=== PATIENT | male | born 1955 | race Asian ===

== ENCOUNTER 2018-10-29 12:30 | Inpatient (IN) | payer OTHER ==
[~2018-10-29] VITALS: Ht 175.3 cm; Wt 79.8 kg
--- NOTE | 2018-10-29 07:10 | NUR ---
NURSE NOTES: Received report from Lachelle Sandoval RN. Pt was just came to the unit, admission orders are not completed yet. Will contact PCP. Pt is resting in the bed w/o respiratory distress in RA. C/o pain 5/10 in chest area when he cough. Pt mentioned that he hit himself when he fell home d/t dizziness and it couase the pain. Safety measures are applied w/ bed alarm on, bed in lowest position with side rails up x2, and breaks are engaged. Call light and side table are w/in reach. Will follow plans of care. Addendum: 10/29/18 at 2019 by HAZEL SUAREZ RN Wrong time input.
[2018-10-29] MEDS ORDERED: ATORVASTATIN CA20 MG ORAL (12:45)
[2018-10-29] MEDS ORDERED: TAMSULOSIN HCL0.4 MG ORAL (12:45)
[2018-10-29] MEDS ORDERED: LOSARTAN POTASS50 MG ORAL (12:45)
[2018-10-29 12:55] VITALS: BP 98/64
--- NOTE | 2018-10-29 12:55 | NUR ---
ED Nurse Note: pt was brought to ED by friend due to pt experiencing nausea, vomiting, and diarrhea for x3 days. per friend, pt insists on walking when he is home and he falls due to dizziness. pt has bruise on his left upper chest. when asking the pt why there is bruise, per pt he fell on his chest. pain 9/10. pt is aox 4 vss at the moment. will await further orders.
[2018-10-29 13:21] LABS: HEMATOCRIT 45.3 % (42.0-52.0); HEMOGLOBIN 16.4 G/DL (14.2-18.0); MEAN CORPUSCULAR VOLUME 93 FL (80-99); PLATELET COUNT 131 K/UL (150-450); RED BLOOD COUNT 4.86 M/UL (4.70-6.10); WHITE BLOOD COUNT 14.3 K/UL (4.8-10.8)
--- NOTE | 2018-10-29 13:38 | Emergency Room Report ---
History of Present Illness General Chief Complaint: Dizziness Source: Patient (Terrance Corbett) Present Illness HPI 62-year-old male patient presents the ER complaining of vomiting, diarrhea, dizziness for the past 4 days. Patient reports no coffee-ground emesis or blood in vomit or stool. Reports dizziness with standing up. Reports history of dizzy symptoms. Reports fell 4 days ago and hit chest. Complaining of chest contusion. Reports pain is reproducible. Denies hitting head or loss conscious. Denies history of seizures. Denies vision changes, photophobia, phonophobia. Reports history of tinnitus. Denies shortness of breath, abdominal pain. Reports hx of dental implant 10 days that preceded the onset of current symptoms.Reports hx of high blood pressure, denies hx of CHF or stroke. (Terrance Corbett) Allergies: Coded Allergies: No Known Allergies (Unverified , 10/29/18) Patient History Past Medical History: see triage record Reviewed Nursing Documentation: PMH: Agreed; PSxH: Agreed (Terrance Corbett) Nursing Documentation-PMH Past Medical History: No History, Except For Hx Hypertension: Yes (Terrance Corbett) Review of Systems All Other Systems: negative except mentioned in HPI (Terrance Corbett) Physical Exam Vital Signs Date Time Temp Pulse Resp B/P (MAP) Pulse Ox O2 Delivery O2 Flow Rate FiO2 10/29/18 12:39 100.2 113 18 98/64 94 Room Air Sp02 EP Interpretation: reviewed, normal General Appearance: well appearing, no apparent distress, alert, GCS 15, non- toxic Head: normocephalic, atraumatic Eyes: bilateral eye normal inspection, bilateral eye PERRL ENT: hearing grossly normal, normal pharynx, no angioedema, normal voice, uvula midline, moist mucus membranes Neck: full range of motion Respiratory: lungs clear, normal breath sounds, no rhonchi, no respiratory distress, no accessory muscle use, no wheezing, speaking full sentences, other - Left upper chest tender to palpation, ecchymosis noted, no flail chest, no deformity Cardiovascular #1: regular rate, rhythm, no edema Gastrointestinal: non tender, soft, no mass, non-distended, no guarding, no rebound Genitourinary: no CVA tenderness Musculoskeletal: back normal, digits/nails normal, gait/station normal, normal range of motion, non-tender Neurologic: alert, oriented x3, responsive, motor strength/tone normal, sensory intact Psychiatric: mood/affect normal Skin: no rash Lymphatic: no adenopathy (Terrance Corbett) Procedures Critical Care Time Critical Care Time 50 minutes of critical care time excluding all procedures due to patient's hemodynamic instability and electrolyte abnormalities. (Terrance Corbett) Critical Care Time The history of Finn Tan has been reviewed and management options for him have been examined and discussed by Edwige Titus. I have personally examined and interviewed the patient. Please note patient was evaluated and examined by myself as well Patient is found to be febrile tachycardic Reports of frequent falls recently Patient is concerned for acute sepsis aggressive hydration and antibiotics initiated patient requiring further inpatient care (Edwige Titus DO) Medical Decision Making PA Attestation Dr. Titus is my supervising Physician whom patient management has been discussed with. (Terrance Corbett) Diagnostic Impression: Primary Impression: Sepsis Additional Impressions: Dizziness Pneumonia Rib fracture ER Course Pt. presents to the ED c/o vomiting, diarrhea, dizziness times 4 days. Ddx considered but are not limited to gastritis, enteritis, sepsis, dehydration , PA, CVA, viral syndrome, influenza,, pneumonia, orthostatic hypotension. Vital signs show mild elevated temperature, tachycardia, hypotension, will provide patient with IV fluids. ER COURSE: Ordered labs and CT head. Provided patient with Tylenol and Zofran. No abdominal tenderness to palpation, does not require CT abdomen at this time. Discuss patient care with Dr. Titus, patient seen and evaluated by him. CXR shows right lower lobe mass, possible PNA, will provide patient with abx. CT chest shows rib fractures. Provided with pain medication. Patient to be admitted. - Please note that this Emergency Department Report was dictated using [employer] interventionist technology software, occasionally this can lead to erroneous entry secondary to interpretation by the dictation equipment. (Terrance Corbett) EKG Diagnostic Results Rate: tachycardiac Rhythm: NSR ST Segments: no acute changes ASA given to the pt in ED: No PA Scribe Text Leonel Corbett PA-C (Terrance Corbett) Rhythm Strip Diag. Results EP Interpretation: yes Rate: 111 Rhythm: NSR, no PVC's, no ectopy MARSHA Scribe Text Leonel Corbett PA-C (Terrance Corbett) CT/MRI/US Diagnostic Results CT/MRI/US Diagnostic Results : Imaging Test Ordered: CT head Impression Negative for acute intracranial bleed or mass effect Minimal periventricular deep white matter chronic ischemic change Questionable old right cerebellar hemispheric deep white matter infarct (Terrance Corbett) Last Vital Signs Date Time Temp Pulse Resp B/P (MAP) Pulse Ox O2 Delivery O2 Flow Rate FiO2 10/29/18 12:55 101.8 113 18 98/64 94 Room Air (Terrance Corbett) Disposition: ADMITTED INPATIENT Condition: Serious Terrance Crobett Oct 29, 2018 13:38 Edwige Titus DO Oct 29, 2018 14:16
[2018-10-29 13:49] LABS: ALANINE AMINOTRANSFERASE 99 U/L (12-78); ALBUMIN 3.1 G/DL (3.4-5.0); ALBUMIN/GLOBULIN RATIO 0.6 (1.0-2.7); ALKALINE PHOSPHATASE 66 U/L (46-116); ANION GAP 13 mmol/L (5-15); ASPARTATE AMINO TRANSFERASE 163 U/L (15-37); BILIRUBIN,TOTAL 1.7 MG/DL (0.2-1.0); BLOOD UREA NITROGEN 24 mg/dL (7-18); CALCIUM 9.4 MG/DL (8.5-10.1); CARBON DIOXIDE 21 MMOL/L (21-32); CHLORIDE 85 MMOL/L (98-107); CKMB 2.2 NG/ML (0.0-3.6); CREATINE KINASE 2210 U/L (26-308); CREATININE 2.1 MG/DL (0.55-1.30); POTASSIUM 3.8 MMOL/L (3.5-5.1); SODIUM 120 MMOL/L (136-145)
[2018-10-29 13:51] LABS: BILIRUBIN,DIRECT 0.6 MG/DL (0.0-0.3)
--- NOTE | 2018-10-29 14:00 | Diagnostic Imaging Report ---
Indications: Dizziness and nausea x4 days Technique: Spiral acquisitions obtained through the brain. Angled axial and coronal 5 x 5 mm slices were reconstructed. Total dose length product 1421.72 mGycm. CTDI vol(s) 70.38 mGy. Dose reduction achieved using automated exposure control Comparison: None. Findings: No acute intracranial hemorrhage nor edema. No mass effect nor midline shift. Normal coyne-white differentiation. Normal-sized ventricles and extra axial CSF spaces. There is minimal periventricular deep white matter low-attenuation, consistent with chronic ischemic change. Questionable old deep white matter lacunar infarct seen in the right cerebellar hemisphere. The sinuses are clear. The mastoids are clear. The calvarium is intact. Visualized orbits demonstrate evidence of prior bilateral cataract surgery. Impression: Negative for acute intracranial bleed or mass effect Minimal periventricular deep white matter chronic ischemic change Questionable old right cerebellar hemispheric deep white matter infarct The CT scanner at [facility] is accredited by the [employer] and the scans are performed using protocols designed to limit radiation exposure to as low as reasonably achievable to attain images of sufficient resolution adequate for diagnostic evaluation.
[2018-10-29 14:58] VITALS: BP 98/69
[2018-10-29 15:00] LABS: APPEARANCE,URINE CLEAR; BILIRUBIN, URINE NEGATIVE (NEGATIVE); GLUCOSE, URINE (UA) NEGATIVE (NEGATIVE); KETONES,URINE 1+ (NEGATIVE); LEUKOCYTE ESTERASE ,URINE 1+ (NEGATIVE); NITRITE,URINE NEGATIVE (NEGATIVE); PH,URINE 5 (4.5-8.0); PROTEIN,URINE 3+ (NEGATIVE); UROBILINOGEN,URINE 1 MG/DL (0.0-1.0)
[2018-10-29 15:01] LABS: COLOR,URINE AMBER
[2018-10-29] MEDS ORDERED: Morphine Sulfate 4mg/ml Inj (IV USE ONLY) IVP ONE (15:15)
--- NOTE | 2018-10-29 15:43 | NUR ---
ED Nurse Note: pt taken for CT chest.
--- NOTE | 2018-10-29 15:54 | NUR ---
ED Nurse Note: pt returned from CT
--- NOTE | 2018-10-29 16:45 | Diagnostic Imaging Report ---
Clinical Indication: Chest pain status post fall Technique: Spiral acquisitions obtained through the chest. No IV contrast utilized, per emergency room physician request. Multiplanar reconstructions generated. Total dose length product 893.96 mGycm. CTDIvol(s) 21.75 mGy. Dose reduction achieved using automated exposure control Comparison: none Findings:There are minimally displaced fractures of the anterolateral right fourth and fifth ribs. There is questionably a nondisplaced fracture of the lateral right sixth rib. There is an old healed fracture deformity of the anterolateral right third rib. The sternum appears to be intact. The vertebral body heights are preserved. No pneumothorax is evident. Dense consolidation is seen occupying most of the right lower lobe. There is also some consolidative opacity in the posterior right upper lobe. Some dependent atelectasis is seen posteriorly in the left lower lobe. No pleural effusions. The heart size is normal. No pericardial effusion. No evidence of retrosternal contusion. No mediastinal or hilar mass or adenopathy. The esophagus is unremarkable. The included thyroid is unremarkable. Included upper abdominal anatomy demonstrates a left lobe liver cyst as well as multiple subcentimeter low-attenuation liver lesions which are too small to characterize. The gallbladder is mildly distended. Multiple nonobstructive calculi are seen in the upper pole right renal collecting system. Impression: Acute left fourth, fifth, and possibly sixth rib fractures. No underlying pulmonary parenchymal contusion or pneumothorax Dense consolidation of much of the right lower lobe, consistent with pneumonia there may be some involvement of the right upper lobe as well. Old healed left third rib fracture deformity Other findings as noted, including left lobe liver cyst, subcentimeter low-attenuation likely cystic liver lesions, nonobstructive right upper pole renal calyceal calculi The CT scanner at [facility] is accredited by the [employer] and the scans are performed using protocols designed to limit radiation exposure to as low as reasonably achievable to attain images of sufficient resolution adequate for diagnostic evaluation.
[2018-10-29] MEDS ORDERED: ATORVASTATIN CA10 MG ORAL (17:25)
--- NOTE | 2018-10-29 17:29 | NUR ---
ED Nurse Note: Attempted to give telephone report to ELDA, keily Castaneda RN, receiving nurse is doing wound care at the moment. unable to give report. will call again.
--- NOTE | 2018-10-29 17:42 | Diagnostic Imaging Report ---
Indication: Chest pain Technique: One view of the chest Comparison: none Findings: On the pleural spaces are clear. The heart is mildly enlarged. The aorta is tortuous. Rib fractures described on subsequent chest CT are not evident on plain radiograph Impression: No acute process
--- NOTE | 2018-10-29 17:53 | Consultation ---
Consult Note Consult Note asked to eval for low Na and renal failure 62-year-old male patient presents the ER complaining of vomiting, diarrhea, dizziness for the past 4 days. Patient reports no coffee-ground emesis or blood in vomit or stool. Reports dizziness with standing up. Reports history of dizzy symptoms. Reports fell 4 days ago and hit chest. Complaining of chest contusion. Reports pain is reproducible. Denies hitting head or loss conscious. Denies history of seizures. Denies vision changes, photophobia, phonophobia. Reports history of tinnitus. Denies shortness of breath, abdominal pain. Reports hx of dental implant 10 days that preceded the onset of current symptoms.Reports hx of high blood pressure, denies hx of CHF or stroke. No Known Allergies (Unverified , 10/29/18) Past Medical History: No History, Except For Hx Hypertension: Yes seen in ER examined Kiswahili speaking Assessment/Plan acute renal failure sepsis Dehydration Pneumonia Hypotension high CK, Rhabdo Rib Fx Plan: Hydrate- monitor renal parameters and CK antibiotics avoid nephrotoxics Te Tripathi MD Oct 29, 2018 17:53
[2018-10-29] MEDS ORDERED: D5NS 1,000 ML IV SCH ×2 (17:56→18:00)
--- NOTE | 2018-10-29 17:58 | NUR ---
ED Nurse Note: telephone report given to LOLY Diaz. per LOLY Diaz send pt up in 15 min
[2018-10-29 18:39] VITALS: BP 104/72
--- NOTE | 2018-10-29 18:59 | NUR ---
NURSE NOTES: Received patient and report from LOLY Rosario in ER to Tele room 207-2. Patient is alert and oriented x4. Noted bruises on patient's hands, patient stated from fall. Patient is on fall risk, fall risk band placed on arm. night monitor in place, vital signs taken and within normal . Will endorse to incoming nurse to fully admit patient. Will continue to monitor patient.
--- NOTE | 2018-10-29 19:10 | NUR ---
NURSE NOTES: Received report from Lachelle Sandoval RN. Pt was just came to the unit, admission orders are not completed yet. Will contact PCP. Pt is resting in the bed w/o respiratory distress in RA. C/o pain 5/10 in chest area when he cough. Pt mentioned that he hit himself when he fell home d/t dizziness and it couase the pain. Safety measures are applied w/ bed alarm on, bed in lowest position with side rails up x2, and breaks are engaged. Call light and side table are w/in reach. Will follow plans of care.
--- NOTE | 2018-10-29 19:27 | NUR ---
HAND-OFF: Report given to LOLY Meade.Endorsed to admit patient.
--- NOTE | 2018-10-29 19:35 | NUR ---
CASE MANAGEMENT: REVIEW 62/M BIBA FROM HOME CC: DIZZINESS . VOMITING . DIARRHEA X4DAYS SI: PNA . FEVER . SEPSIS T 101.8 HR 113 RR 22 BP 98/64 SAT 94% ROOM AIR WBC 14.3 NA 120 BUN 24 CR 2.1 IS: NS IVF BOLUS X1 ZOFRAN IV X1 TYLENOL 650MG PO X1 LEVOFLOXACIN IV X1 MORPHINE 4MG IV X1 D5 NS IVF BOLUS X1 INTERQUAL CRITERIA MET: PATIENT ADMITTED TO TELEMETRY UNIT 10/29/2018 DCP: PATIENT IS FROM HOME
[2018-10-29 20:00] VITALS: BP 115/78
--- NOTE | 2018-10-29 20:56 | NUR ---
NURSE NOTES: Dr. Wayne adam called and gave Tele orders of Morphine 2mg Q4HR PRN, SCDs,Full code, Renal diet in mechanical soft, MD to call, Edwige Pate, and Dr. Anne Hutchins. He is aware of WBC 14.3, Na 120. Will carry out the orders.
[2018-10-29] MEDS: Tamsulosin 0.4mg cap ORAL SCH (21:05)
[2018-10-29] MEDS: Morphine Sulfate 4mg/ml Inj (IV USE ONLY) IVP PRN (21:06)
--- NOTE | 2018-10-29 21:54 | NUR ---
NURSE NOTES: Morphine 2mg was given for CP 7/10, 2L NC was applied. A cup of water was provided/ Pt is moved to RM 201-2 from 207-2 to be observed closely. Will access pt continuously.
[2018-10-30] VITALS: BP 118/80
--- NOTE | 2018-10-30 00:51 | NUR ---
NURSE NOTES: Pt mentioned that coughing causes CP, when no cough, there's no pain. Current chest pain 10/17. Called and receive TO of Robitussin 100mg 4HRPRN. Will carry out the orders. Will continue to monitor.
[2018-10-30 04:00] VITALS: BP 113/77
[2018-10-30] MEDS: guaiFENesin 100mg/5ml Liq ud ORAL PRN ×2 (04:36→08:40)
[2018-10-30] MEDS: Morphine Sulfate 4mg/ml Inj (IV USE ONLY) IVP PRN (04:37)
--- NOTE | 2018-10-30 04:52 | NUR ---
NURSE NOTES: Temp 102.[address] Black already mentioned that he was not give order of neither Ibuprofen nor acetaminolphen due/t abnormal labs. Currently, 3 ice packs are applied to pt, and was ice water was given. Will reassess temp adn will contact PCP. Addendum: 10/30/18 at 0638 by HAZEL SUAREZ RN Temp 100.4. reported to Dr. Black, he ordered to call Dr. Anne Hutchins to report fever and no order of PRN for temperature due to abnormal labs. Reported that Blood culture and urine culture was done in ER. No need to be repeated. Addendum: 10/30/18 at 0655 by HAZEL SUAREZ RN NURSE NOTES: Reported t 100.4, labs, and Dr. Black's order to Dr. Jenelle Hutchins. Rocephine 1gm daily, tylenol 650mg Q6HR PRN, ordered. Will carry out the orders.
[2018-10-30 06:40] LABS: HEMATOCRIT 42.4 % (42.0-52.0); HEMOGLOBIN 15.3 G/DL (14.2-18.0); MEAN CORPUSCULAR VOLUME 94 FL (80-99); PLATELET COUNT 123 K/UL (150-450); RED BLOOD COUNT 4.52 M/UL (4.70-6.10); RED CELL DISTRIBUTION WIDTH 11.3 % (11.6-14.8); WHITE BLOOD COUNT 10.9 K/UL (4.8-10.8)
--- NOTE | 2018-10-30 07:05 | NUR ---
HAND-OFF: Report given to Lachelle Sandoval RN. Endorsed plans of care.
--- NOTE | 2018-10-30 07:10 | NUR ---
NURSE NOTES: Received patient and report from LOLY Meade in bed eating breakfast. Noted patient coughing, denies any pain at this time. Encouraged patient to eat slowly and deep breathing. Patient is on 2L NC, breathing is even and unlabored. Bed is in lowest position, brakes engaged for safety. Call light is within reach. Will continue with the plan of care.
[2018-10-30 07:42] LABS: ALANINE AMINOTRANSFERASE 110 U/L (12-78); ALBUMIN 2.5 G/DL (3.4-5.0); ALBUMIN/GLOBULIN RATIO 0.5 (1.0-2.7); ALKALINE PHOSPHATASE 66 U/L (46-116); ANION GAP 15 mmol/L (5-15); ASPARTATE AMINO TRANSFERASE 179 U/L (15-37); BILIRUBIN,DIRECT 0.3 MG/DL (0.0-0.3); BILIRUBIN,TOTAL 1.1 MG/DL (0.2-1.0); BLOOD UREA NITROGEN 18 mg/dL (7-18); CALCIUM 8.5 MG/DL (8.5-10.1); CARBON DIOXIDE 17 MMOL/L (21-32); CHLORIDE 97 MMOL/L (98-107); CHOLESTEROL 92 MG/DL (< 200); CREATINE KINASE 1761 U/L (26-308); CREATININE 1.4 MG/DL (0.55-1.30); GAMMA GLUTAMYL TRANSPEPTIDASE 25 U/L (5-85); HDL CHOLESTEROL 24 MG/DL (40-60); PHOSPHORUS 1.9 MG/DL (2.5-4.9); POTASSIUM 3.9 MMOL/L (3.5-5.1); SODIUM 129 MMOL/L (136-145); TRIGLYCERIDES 74 MG/DL (30-150)
[2018-10-30 08:00] VITALS: BP 118/80
[2018-10-30] MEDS ORDERED: Morphine Sulfate 4mg/ml Inj (IV USE ONLY) IVP PRN (08:00)
[2018-10-30] MEDS: cefTRIAXone 1 GM in D5W 55 ML IVPB SCH (08:42)
[2018-10-30] MEDS ORDERED: Pantoprazole Inj IVP SCH ×2 (09:00→21:00)
[2018-10-30] MEDS ORDERED: Sodium Phosphate 30 MM in NS 275 ML IVPB ONE (10:00)
--- NOTE | 2018-10-30 10:37 | GI Initial Consult Note ---
History of Present Illness General Date patient seen: Oct 30, 2018 Time patient seen: 10:30 Reason for Hospitalization: Dizziness Referring physician: MARU VELASCO Reason for Consultation: nausea / vomiting Present Illness HPI 62-year-old male patient presents the ER complaining of vomiting, diarrhea, dizziness for the past 4 days. Patient reports no coffee-ground emesis or blood in vomit or stool. Reports dizziness with standing up. Reports history of dizzy symptoms. Reports fell 4 days ago and hit chest. Complaining of chest contusion. Reports pain is reproducible. Denies hitting head or loss conscious. Denies history of seizures. Denies vision changes, photophobia, phonophobia. Reports history of tinnitus. Denies shortness of breath, abdominal pain. Reports hx of dental implant 10 days that preceded the onset of current symptoms.Reports hx of high blood pressure, denies hx of CHF or stroke. GI consulted for reports of vomiting and diarrhea times 4 days. Patient was seen, awake alert and oriented x4 Slovenian speaking only has complaint of chest pain. The patient currently denied any nausea/dizziness or vomiting, denied any abdominal pain, denied any diarrhea or constipation. Head CT performed in the emergency department was negative. Labs reviewed; patient presents today with a mild leukocytosis, transaminitis and renal insufficiency. The patient denies any alcohol, tobacco or drug use. Patient has no history of endoscopic or colonoscopy. Home Meds Reported Medications Atorvastatin Calcium* (LIPITOR*) 10 Mg Tablet, 10 MG ORAL BEDTIME, TAB 10/29/18 Tamsulosin Hcl (TAMSULOSIN HCL*) 0.4 Mg Cap.er.24h, 0.4 MG ORAL BEDTIME, CAP 10/29/18 Losartan Potassium* (LOSARTAN POTASSIUM*) 50 Mg Tablet, 1.5 TAB ORAL DAILY, TAB (75 mg total) 10/29/18 Discontinued Reported Medications Atorvastatin Calcium* (ATORVASTATIN CALCIUM*) 20 Mg Tablet, 10 MG ORAL BEDTIME, TAB 10/29/18 Med list reviewed/reconciled: Yes Allergies: Coded Allergies: No Known Allergies (Unverified , 10/29/18) Patient History History Provided By: Patient, Medical Record [facility] Narrative Past Medical History: No History, Except For Hx Hypertension: Yes Pertinent Family History: none, HTN Social History: Denies: smoking, alcohol use, drug use, other Review of Systems All Other Systems: negative except mentioned in HPI Physical Exam Vital Signs Date Time Temp Pulse Resp B/P (MAP) Pulse Ox O2 Delivery O2 Flow Rate FiO2 10/29/18 12:39 100.2 113 18 98/64 94 Room Air 10/29/18 22:59 2.0 Sp02 EP Interpretation: reviewed, normal Labs Laboratory Tests Test 10/29/18 13:04 10/29/18 13:50 10/29/18 13:54 10/29/18 14:48 White Blood Count 14.3 K/UL (4.8-10.8) H Red Blood Count 4.86 M/UL (4.70-6.10) Hemoglobin 16.4 G/DL (14.2-18.0) Hematocrit 45.3 % (42.0-52.0) Mean Corpuscular Volume 93 FL (80-99) Mean Corpuscular Hemoglobin 33.8 PG (27.0-31.0) H Mean Corpuscular Hemoglobin Concent 36.3 G/DL (32.0-36.0) H Red Cell Distribution Width 11.0 % (11.6-14.8) L Platelet Count 131 K/UL (150-450) L Mean Platelet Volume 9.3 FL (6.5-10.1) Neutrophils (%) (Auto) % (45.0-75.0) Lymphocytes (%) (Auto) % (20.0-45.0) Monocytes (%) (Auto) % (1.0-10.0) Eosinophils (%) (Auto) % (0.0-3.0) Basophils (%) (Auto) % (0.0-2.0) Differential Total Cells Counted 100 Neutrophils % (Manual) 83 % (45-75) H Lymphocytes % (Manual) 7 % (20-45) L Monocytes % (Manual) 10 % (1-10) Eosinophils % (Manual) 0 % (0-3) Basophils % (Manual) 0 % (0-2) Band Neutrophils 0 % (0-8) Platelet Estimate Adequate Platelet Morphology Normal Red Blood Cell Morphology Normal Urine Color Renée Urine Appearance Clear Urine pH 5 (4.5-8.0) Urine Specific [place] 1.020 (1.005-1.035) Urine Protein 3+ (NEGATIVE) H Urine Glucose (UA) Negative (NEGATIVE) Urine Ketones 1+ (NEGATIVE) H Urine Blood 5+ (NEGATIVE) H Urine Nitrite Negative (NEGATIVE) Urine Bilirubin Negative (NEGATIVE) Urine Ictotest Negative (NEGATIVE) Urine Urobilinogen 1 MG/DL (0.0-1.0) H Urine Leukocyte Esterase 1+ (NEGATIVE) H Urine RBC 10-15 /HPF (0 - 0) H Urine WBC 2-4 /HPF (0 - 0) Urine Squamous Epithelial Cells None /LPF (NONE/OCC) Urine Amorphous Sediment Few /LPF (NONE) H Urine Bacteria Moderate /HPF (NONE) H Sodium Level 120 MMOL/L (136-145) L Potassium Level 3.8 MMOL/L (3.5-5.1) Chloride Level 85 MMOL/L (98-107) L Carbon Dioxide Level 21 MMOL/L (21-32) Anion Gap 13 mmol/L (5-15) Blood Urea Nitrogen 24 mg/dL (7-18) H Creatinine 2.1 MG/DL (0.55-1.30) H Estimat Glomerular Filtration Rate 32.4 mL/min (>60) Glucose Level 120 MG/DL (74-106) H Calcium Level 9.4 MG/DL (8.5-10.1) Total Bilirubin 1.7 MG/DL (0.2-1.0) H Direct Bilirubin 0.6 MG/DL (0.0-0.3) H Aspartate Amino Transf (AST/SGOT) 163 U/L (15-37) H Alanine Aminotransferase (ALT/SGPT) 99 U/L (12-78) H Alkaline Phosphatase 66 U/L (46-116) Total Creatine Kinase 2210 U/L (26-308) H Creatine Kinase MB 2.2 NG/ML (0.0-3.6) Creatine Kinase MB Relative Index 0.0 Troponin I 0.021 ng/mL (0.000-0.056) Pro-B-Type Natriuretic Peptide 77 pg/mL (0-125) Total Protein 8.2 G/DL (6.4-8.2) Albumin 3.1 G/DL (3.4-5.0) L Globulin 5.1 g/dL Albumin/Globulin Ratio 0.6 (1.0-2.7) L C-Reactive Protein, Quantitative 52.5 mg/dL (0.00-0.90) H Lactic Acid Level 2.20 mmol/L (0.4-2.0) H 1.80 mmol/L (0.66-2.22) Test 10/30/18 06:18 White Blood Count 10.9 K/UL (4.8-10.8) H Red Blood Count 4.52 M/UL (4.70-6.10) L Hemoglobin 15.3 G/DL (14.2-18.0) Hematocrit 42.4 % (42.0-52.0) Mean Corpuscular Volume 94 FL (80-99) Mean Corpuscular Hemoglobin 33.7 PG (27.0-31.0) H Mean Corpuscular Hemoglobin Concent 36.0 G/DL (32.0-36.0) Red Cell Distribution Width 11.3 % (11.6-14.8) L Platelet Count 123 K/UL (150-450) L Mean Platelet Volume 8.3 FL (6.5-10.1) Neutrophils (%) (Auto) % (45.0-75.0) Lymphocytes (%) (Auto) % (20.0-45.0) Monocytes (%) (Auto) % (1.0-10.0) Eosinophils (%) (Auto) % (0.0-3.0) Basophils (%) (Auto) % (0.0-2.0) Differential Total Cells Counted 100 Neutrophils % (Manual) 87 % (45-75) H Lymphocytes % (Manual) 5 % (20-45) L Monocytes % (Manual) 7 % (1-10) Eosinophils % (Manual) 0 % (0-3) Basophils % (Manual) 0 % (0-2) Band Neutrophils 1 % (0-8) Platelet Estimate Decreased L Platelet Morphology Normal Red Blood Cell Morphology Normal Sodium Level 129 MMOL/L (136-145) L Potassium Level 3.9 MMOL/L (3.5-5.1) Chloride Level 97 MMOL/L (98-107) L Carbon Dioxide Level 17 MMOL/L (21-32) L Anion Gap 15 mmol/L (5-15) Blood Urea Nitrogen 18 mg/dL (7-18) Creatinine 1.4 MG/DL (0.55-1.30) H Estimat Glomerular Filtration Rate 51.7 mL/min (>60) Glucose Level 89 MG/DL (74-106) Hemoglobin A1c 5.9 % (4.3-6.0) Uric Acid 4.1 MG/DL (2.6-7.2) Calcium Level 8.5 MG/DL (8.5-10.1) Phosphorus Level 1.9 MG/DL (2.5-4.9) L Magnesium Level 2.1 MG/DL (1.8-2.4) Total Bilirubin 1.1 MG/DL (0.2-1.0) H Direct Bilirubin 0.3 MG/DL (0.0-0.3) Gamma Glutamyl Transpeptidase 25 U/L (5-85) Aspartate Amino Transf (AST/SGOT) 179 U/L (15-37) H Alanine Aminotransferase (ALT/SGPT) 110 U/L (12-78) H Alkaline Phosphatase 66 U/L (46-116) Total Creatine Kinase 1761 U/L (26-308) H Troponin I 0.008 ng/mL (0.000-0.056) Pro-B-Type Natriuretic Peptide 140 pg/mL (0-125) H Total Protein 7.2 G/DL (6.4-8.2) Albumin 2.5 G/DL (3.4-5.0) L Globulin 4.7 g/dL Albumin/Globulin Ratio 0.5 (1.0-2.7) L Triglycerides Level 74 MG/DL (30-150) Cholesterol Level 92 MG/DL (< 200) LDL Cholesterol 56 mg/dL (<100) HDL Cholesterol 24 MG/DL (40-60) L Cholesterol/HDL Ratio 3.8 (3.3-4.4) Thyroid Stimulating Hormone (TSH) 1.222 uiU/mL (0.358-3.740) General Appearance: well appearing, no apparent distress, alert Head: normocephalic EENT: PERRL/EOMI, normal ENT inspection Neck: supple Respiratory: normal breath sounds, no respiratory distress Cardiovascular: normal rate Gastrointestinal: normal inspection, non tender, soft, normal bowel sounds, non -distended Rectal: deferred Genitourinary: deferred Musculoskeletal: normal inspection, back normal Neurologic: normal inspection, alert, oriented x3, responsive Psychiatric: normal inspection, judgement/insight normal, memory normal Skin: normal inspection, normal color, no rash, warm/dry, palpation normal, well hydrated Lymphatic: normal inspection, no adenopathy Current Medications Current Medications Medications (Trade) Dose Ordered Sig/Rene Route PRN Reason Start Time Stop Time Status Last Admin Dose Admin Acetaminophen (Tylenol) 650 mg Q6H PRN ORAL Mild Pain/Temp > 100.5 10/30/18 07:15 11/29/18 07:14 Ceftriaxone Sodium 1 gm/ Dextrose 55 ml @ 110 mls/hr DAILY IVPB 10/30/18 09:00 11/06/18 08:59 10/30/18 08:42 Dextrose (Dextrose 50%) 25 ml Q30M PRN IV Hypoglycemia 10/29/18 23:15 11/28/18 23:14 Dextrose (Dextrose 50%) 50 ml Q30M PRN IV Hypoglycemia 10/29/18 23:15 11/28/18 23:14 Dextrose/Sodium Chloride 1,000 ml @ 100 mls/hr Q10H IV 10/30/18 18:05 11/28/18 18:04 Guaifenesin (Robitussin) 100 mg Q4H PRN ORAL For Cough 10/30/18 00:30 11/29/18 00:29 10/30/18 08:40 Morphine Sulfate (Morphine Sulfate) 2 mg Q4H PRN IVP For Pain 4-10 10/30/18 08:00 11/05/18 20:59 Pantoprazole (Protonix) 40 mg DAILY IVP 10/30/18 09:00 11/29/18 08:59 10/30/18 08:40 Sodium Phosphate 30 mm/Sodium Chloride 285 ml @ 47.5 mls/hr ONCE ONCE IVPB 10/30/18 10:00 10/30/18 15:59 10/30/18 10:28 Tamsulosin HCl (Flomax) 0.4 mg BEDTIME ORAL 10/29/18 21:00 11/28/18 20:59 10/29/18 21:05 GI: Plan Problems: (1) Nausea & vomiting (2) Chest pain (3) Dizziness Plan Symptomatic treatment at this time Okay to advance diet Zofran as needed Prophylactic antibiotics PPI IV or p.o. hydration plus electrolyte correction Monitor for any episodes of hypotension fu labs Outpatient GI procedures Discussed with Dr. Smith. Thank you for this patient referral, we will follow. The patient was seen and examined at bedside and all new and available data was reviewed in the patients chart. I agree with the above findings, impression and plan. (Patient seen earlier today. Signature stamp does not reflect patient encounter time.). - MD Andreina GudinoLa Paz Regional HospitalSalomon HERBERT Oct 30, 2018 10:37
[2018-10-30 12:00] VITALS: BP 116/77
[2018-10-30] MEDS ORDERED: Azithromycin 250mg tab ORAL SCH (12:51)
--- NOTE | 2018-10-30 13:03 | Consultation ---
History of Present Illness General Date patient seen: Oct 30, 2018 Time patient seen: 12:56 Chief Complaint: Cough Referring physician: MARU VELASCO Reason for Consultation: Rib Fx and PNA Present Illness HPI 62 M no sig PMH p/w dizziness x 4 days, abd pain, NV, near syncope with fall, rib Fx and PNA --> DMITRIY with hypoNA and rhabdo. + cough + N no further V + CP no F/C, no dysuria/urg/hes/freq Allergies: Coded Allergies: No Known Allergies (Unverified , 10/29/18) Medication History Scheduled Atorvastatin Calcium* (Lipitor*), 10 MG ORAL BEDTIME, (Reported) Losartan Potassium* (Losartan Potassium*), 1.5 TAB ORAL DAILY, (Reported) Tamsulosin Hcl (Tamsulosin Hcl*), 0.4 MG ORAL BEDTIME, (Reported) Discontinued Medications Atorvastatin Calcium* (Atorvastatin Calcium*), 10 MG ORAL BEDTIME, (Reported) Discontinued Reason: Prescription changed Patient History Limited by: other - none History Provided By: Patient - via Slovenian interpretar Healthcare decision maker Resuscitation status Full Code Advanced Directive on File No Past Medical/Surgical History Past Medical/Surgical History: (1) Hypertension Review of Systems All Other Systems: negative except mentioned in HPI Physical Exam General Appearance: WD/WN, no apparent distress Lines, tubes and drains: peripheral HEENT: normocephalic, atraumatic, anicteric, mucous membranes moist Neck: non-tender, normal alignment, supple, normal inspection Respiratory/Chest: no respiratory distress, no accessory muscle use, other - R CW TTP Cardiovascular/Chest: normal peripheral pulses, normal rate, regular rhythm Abdomen: normal bowel sounds, non tender, soft, no organomegaly, no mass Extremities: no edema Last 24 Hour Vital Signs Date Time Temp Pulse Resp B/P (MAP) Pulse Ox O2 Delivery O2 Flow Rate FiO2 10/30/18 12:00 99.4 98 18 116/77 (90) 10/30/18 09:00 Nasal Cannula 2.0 10/30/18 08:00 100.6 111 18 118/80 (93) 97 10/30/18 08:00 111 10/30/18 06:20 100.4 10/30/18 04:00 102.4 106 20 113/77 (89) 97 10/30/18 03:15 105 10/30/18 00:00 98.0 98 20 118/80 (93) 98 10/29/18 23:19 104 10/29/18 22:59 Nasal Cannula 2.0 10/29/18 20:00 98.1 99 22 115/78 (90) 96 10/29/18 19:37 104 10/29/18 18:39 97.4 96 20 104/72 (83) 100 10/29/18 18:33 95 10/29/18 14:58 100.5 96 22 98/69 95 Room Air Intake and Output 10/29/18 10/30/18 19:00 07:00 Intake Total 300 ml Balance 300 ml Intake Oral 300 ml # Voids 1 4 Laboratory Tests Test 10/29/18 13:04 10/29/18 13:50 10/29/18 13:54 10/29/18 14:48 White Blood Count 14.3 K/UL (4.8-10.8) H Red Blood Count 4.86 M/UL (4.70-6.10) Hemoglobin 16.4 G/DL (14.2-18.0) Hematocrit 45.3 % (42.0-52.0) Mean Corpuscular Volume 93 FL (80-99) Mean Corpuscular Hemoglobin 33.8 PG (27.0-31.0) H Mean Corpuscular Hemoglobin Concent 36.3 G/DL (32.0-36.0) H Red Cell Distribution Width 11.0 % (11.6-14.8) L Platelet Count 131 K/UL (150-450) L Mean Platelet Volume 9.3 FL (6.5-10.1) Neutrophils (%) (Auto) % (45.0-75.0) Lymphocytes (%) (Auto) % (20.0-45.0) Monocytes (%) (Auto) % (1.0-10.0) Eosinophils (%) (Auto) % (0.0-3.0) Basophils (%) (Auto) % (0.0-2.0) Differential Total Cells Counted 100 Neutrophils % (Manual) 83 % (45-75) H Lymphocytes % (Manual) 7 % (20-45) L Monocytes % (Manual) 10 % (1-10) Eosinophils % (Manual) 0 % (0-3) Basophils % (Manual) 0 % (0-2) Band Neutrophils 0 % (0-8) Platelet Estimate Adequate Platelet Morphology Normal Red Blood Cell Morphology Normal Urine Color Renée Urine Appearance Clear Urine pH 5 (4.5-8.0) Urine Specific [place] 1.020 (1.005-1.035) Urine Protein 3+ (NEGATIVE) H Urine Glucose (UA) Negative (NEGATIVE) Urine Ketones 1+ (NEGATIVE) H Urine Blood 5+ (NEGATIVE) H Urine Nitrite Negative (NEGATIVE) Urine Bilirubin Negative (NEGATIVE) Urine Ictotest Negative (NEGATIVE) Urine Urobilinogen 1 MG/DL (0.0-1.0) H Urine Leukocyte Esterase 1+ (NEGATIVE) H Urine RBC 10-15 /HPF (0 - 0) H Urine WBC 2-4 /HPF (0 - 0) Urine Squamous Epithelial Cells None /LPF (NONE/OCC) Urine Amorphous Sediment Few /LPF (NONE) H Urine Bacteria Moderate /HPF (NONE) H Sodium Level 120 MMOL/L (136-145) L Potassium Level 3.8 MMOL/L (3.5-5.1) Chloride Level 85 MMOL/L (98-107) L Carbon Dioxide Level 21 MMOL/L (21-32) Anion Gap 13 mmol/L (5-15) Blood Urea Nitrogen 24 mg/dL (7-18) H Creatinine 2.1 MG/DL (0.55-1.30) H Estimat Glomerular Filtration Rate 32.4 mL/min (>60) Glucose Level 120 MG/DL (74-106) H Calcium Level 9.4 MG/DL (8.5-10.1) Total Bilirubin 1.7 MG/DL (0.2-1.0) H Direct Bilirubin 0.6 MG/DL (0.0-0.3) H Aspartate Amino Transf (AST/SGOT) 163 U/L (15-37) H Alanine Aminotransferase (ALT/SGPT) 99 U/L (12-78) H Alkaline Phosphatase 66 U/L (46-116) Total Creatine Kinase 2210 U/L (26-308) H Creatine Kinase MB 2.2 NG/ML (0.0-3.6) Creatine Kinase MB Relative Index 0.0 Troponin I 0.021 ng/mL (0.000-0.056) Pro-B-Type Natriuretic Peptide 77 pg/mL (0-125) Total Protein 8.2 G/DL (6.4-8.2) Albumin 3.1 G/DL (3.4-5.0) L Globulin 5.1 g/dL Albumin/Globulin Ratio 0.6 (1.0-2.7) L C-Reactive Protein, Quantitative 52.5 mg/dL (0.00-0.90) H Lactic Acid Level 2.20 mmol/L (0.4-2.0) H 1.80 mmol/L (0.66-2.22) Test 10/30/18 06:18 White Blood Count 10.9 K/UL (4.8-10.8) H Red Blood Count 4.52 M/UL (4.70-6.10) L Hemoglobin 15.3 G/DL (14.2-18.0) Hematocrit 42.4 % (42.0-52.0) Mean Corpuscular Volume 94 FL (80-99) Mean Corpuscular Hemoglobin 33.7 PG (27.0-31.0) H Mean Corpuscular Hemoglobin Concent 36.0 G/DL (32.0-36.0) Red Cell Distribution Width 11.3 % (11.6-14.8) L Platelet Count 123 K/UL (150-450) L Mean Platelet Volume 8.3 FL (6.5-10.1) Neutrophils (%) (Auto) % (45.0-75.0) Lymphocytes (%) (Auto) % (20.0-45.0) Monocytes (%) (Auto) % (1.0-10.0) Eosinophils (%) (Auto) % (0.0-3.0) Basophils (%) (Auto) % (0.0-2.0) Differential Total Cells Counted 100 Neutrophils % (Manual) 87 % (45-75) H Lymphocytes % (Manual) 5 % (20-45) L Monocytes % (Manual) 7 % (1-10) Eosinophils % (Manual) 0 % (0-3) Basophils % (Manual) 0 % (0-2) Band Neutrophils 1 % (0-8) Platelet Estimate Decreased L Platelet Morphology Normal Red Blood Cell Morphology Normal Sodium Level 129 MMOL/L (136-145) L Potassium Level 3.9 MMOL/L (3.5-5.1) Chloride Level 97 MMOL/L (98-107) L Carbon Dioxide Level 17 MMOL/L (21-32) L Anion Gap 15 mmol/L (5-15) Blood Urea Nitrogen 18 mg/dL (7-18) Creatinine 1.4 MG/DL (0.55-1.30) H Estimat Glomerular Filtration Rate 51.7 mL/min (>60) Glucose Level 89 MG/DL (74-106) Hemoglobin A1c 5.9 % (4.3-6.0) Uric Acid 4.1 MG/DL (2.6-7.2) Calcium Level 8.5 MG/DL (8.5-10.1) Phosphorus Level 1.9 MG/DL (2.5-4.9) L Magnesium Level 2.1 MG/DL (1.8-2.4) Total Bilirubin 1.1 MG/DL (0.2-1.0) H Direct Bilirubin 0.3 MG/DL (0.0-0.3) Gamma Glutamyl Transpeptidase 25 U/L (5-85) Aspartate Amino Transf (AST/SGOT) 179 U/L (15-37) H Alanine Aminotransferase (ALT/SGPT) 110 U/L (12-78) H Alkaline Phosphatase 66 U/L (46-116) Total Creatine Kinase 1761 U/L (26-308) H Troponin I 0.008 ng/mL (0.000-0.056) Pro-B-Type Natriuretic Peptide 140 pg/mL (0-125) H Total Protein 7.2 G/DL (6.4-8.2) Albumin 2.5 G/DL (3.4-5.0) L Globulin 4.7 g/dL Albumin/Globulin Ratio 0.5 (1.0-2.7) L Triglycerides Level 74 MG/DL (30-150) Cholesterol Level 92 MG/DL (< 200) LDL Cholesterol 56 mg/dL (<100) HDL Cholesterol 24 MG/DL (40-60) L Cholesterol/HDL Ratio 3.8 (3.3-4.4) Thyroid Stimulating Hormone (TSH) 1.222 uiU/mL (0.358-3.740) Microbiology Date/Time Source Procedure Growth Status 10/29/18 14:27 Nasal Nares Influenza Types A,B Antigen (MAHNAZ) - Final Complete 10/29/18 13:04 Urine,Clean Catch Urine Culture - Preliminary NO GROWTH Resulted Height (Feet): 5 Height (Inches): 9.00 Weight (Pounds): 176 Medications Current Medications Medications (Trade) Dose Ordered Sig/Rene Route PRN Reason Start Time Stop Time Status Last Admin Dose Admin Acetaminophen (Tylenol) 650 mg Q6H PRN ORAL Mild Pain/Temp > 100.5 10/30/18 07:15 11/29/18 07:14 Azithromycin (Zithromax) 250 mg DAILY ORAL 10/31/18 09:00 11/07/18 08:59 Azithromycin (Zithromax) 500 mg ONCE ORAL 10/30/18 12:51 10/30/18 13:51 Ceftriaxone Sodium 1 gm/ Dextrose 55 ml @ 110 mls/hr DAILY IVPB 10/30/18 09:00 11/06/18 08:59 10/30/18 08:42 Dextrose (Dextrose 50%) 25 ml Q30M PRN IV Hypoglycemia 10/29/18 23:15 11/28/18 23:14 Dextrose (Dextrose 50%) 50 ml Q30M PRN IV Hypoglycemia 10/29/18 23:15 11/28/18 23:14 Dextrose/Sodium Chloride 1,000 ml @ 100 mls/hr Q10H IV 10/30/18 18:05 11/28/18 18:04 Guaifenesin (Robitussin) 100 mg Q4H PRN ORAL For Cough 10/30/18 00:30 11/29/18 00:29 10/30/18 08:40 Heparin Sodium (Porcine) (Heparin 5000 units/ml) 5,000 units EVERY 12 HOURS SUBQ 10/30/18 21:00 11/29/18 20:59 Morphine Sulfate (Morphine Sulfate) 2 mg Q4H PRN IVP For Pain 4-10 10/30/18 08:00 11/05/18 20:59 Pantoprazole (Protonix) 40 mg DAILY IVP 10/30/18 09:00 11/29/18 08:59 10/30/18 08:40 Sodium Phosphate 30 mm/Sodium Chloride 285 ml @ 47.5 mls/hr ONCE ONCE IVPB 10/30/18 10:00 10/30/18 15:59 10/30/18 10:28 Tamsulosin HCl (Flomax) 0.4 mg BEDTIME ORAL 1/22/19 21:00 11/28/18 20:59 10/29/18 21:05 Assessment/Plan Problem List: (1) Rhabdomyolysis ICD Codes: M62.82 - Rhabdomyolysis SNOMED: 656568880 (2) UTI (urinary tract infection) ICD Codes: N39.0 - Urinary tract infection, site not specified SNOMED: 15108196 (3) DMITRIY (acute kidney injury) ICD Codes: N17.9 - Acute kidney failure, unspecified SNOMED: 17022023 (4) Rib fracture ICD Codes: S22.39XA - Fracture of one rib, unspecified side, initial encounter for closed fracture SNOMED: 46737936 (5) Pneumonia ICD Codes: J18.9 - Pneumonia, unspecified organism SNOMED: 008827528 (6) Nausea & vomiting ICD Codes: R11.2 - Nausea with vomiting, unspecified SNOMED: 44376480 (7) Dizziness ICD Codes: R42 - Dizziness and giddiness SNOMED: 038080435, 310871899 Assessment/Plan Optimize pulmonary hygiene/mobilize as tolerated PRN O2 IS HHN's PRN Robitussin Continue CTx, add Azithro Pain control/supportive care Infiltrates need to be followed to radiographic resolution Monitor renal function and volumes, continue IVF Aspiration precautions, MAILING SPECIALIST eval Anti-emmetic therapy F/U GI recs DVT Px: Hep SQ FC John Haynes MD Oct 30, 2018 13:03
[2018-10-30] MEDS ORDERED: traMADol 50mg tab ORAL SCH (13:53)
--- NOTE | 2018-10-30 13:54 | Nephrology Progress Note ---
Assessment/Plan Problem List: (1) DMITRIY (acute kidney injury) (2) Rhabdomyolysis (3) Rib fracture (4) Hypertension (5) Pneumonia Assessment acute renal failure sepsis Dehydration Pneumonia Hypotension high CK, Rhabdo Rib Fx Plan Plan: Hydrate- monitor renal parameters and CK antibiotics analgesics avoid nephrotoxics Subjective ROS Limited/Unobtainable: No Constitutional: Reports: malaise Objective Objective Last 24 Hour Vital Signs Date Time Temp Pulse Resp B/P (MAP) Pulse Ox O2 Delivery O2 Flow Rate FiO2 10/30/18 12:00 99.4 98 18 116/77 (90) 10/30/18 09:00 Nasal Cannula 2.0 10/30/18 08:00 100.6 111 18 118/80 (93) 97 10/30/18 08:00 111 10/30/18 06:20 100.4 10/30/18 04:00 102.4 106 20 113/77 (89) 97 10/30/18 03:15 105 10/30/18 00:00 98.0 98 20 118/80 (93) 98 10/29/18 23:19 104 10/29/18 22:59 Nasal Cannula 2.0 10/29/18 20:00 98.1 99 22 115/78 (90) 96 10/29/18 19:37 104 10/29/18 18:39 97.4 96 20 104/72 (83) 100 10/29/18 18:33 95 10/29/18 14:58 100.5 96 22 98/69 95 Room Air Intake and Output 10/29/18 10/30/18 19:00 07:00 Intake Total 300 ml Balance 300 ml Intake Oral 300 ml # Voids 1 4 Laboratory Tests 10/29/18 13:54: Lactic Acid Level 2.20H 10/29/18 14:48: Lactic Acid Level 1.80 10/30/18 06:18: White Blood Count 10.9H, Red Blood Count 4.52L, Hemoglobin 15.3, Hematocrit 42.4 , Mean Corpuscular Volume 94, Mean Corpuscular Hemoglobin 33.7H, Mean Corpuscular Hemoglobin Concent 36.0, Red Cell Distribution Width 11.3L, Platelet Count 123L, Mean Platelet Volume 8.3, Neutrophils (%) (Auto) , Lymphocytes (%) (Auto) , Monocytes (%) (Auto) , Eosinophils (%) (Auto) , Basophils (%) (Auto) , Differential Total Cells Counted 100, Neutrophils % ( Manual) 87H, Lymphocytes % (Manual) 5L, Monocytes % (Manual) 7, Eosinophils % ( Manual) 0, Basophils % (Manual) 0, Band Neutrophils 1, Platelet Estimate DecreasedL, Platelet Morphology Normal, Red Blood Cell Morphology Normal, Sodium Level 129L, Potassium Level 3.9, Chloride Level 97L, Carbon Dioxide Level 17L, Anion Gap 15, Blood Urea Nitrogen 18, Creatinine 1.4H, Estimat Glomerular Filtration Rate 51.7, Glucose Level 89, Hemoglobin A1c 5.9, Uric Acid 4.1, Calcium Level 8.5, Phosphorus Level 1.9L, Magnesium Level 2.1, Total Bilirubin 1.1H, Direct Bilirubin 0.3, Gamma Glutamyl Transpeptidase 25, Aspartate Amino Transf (AST/SGOT) 179H, Alanine Aminotransferase (ALT/SGPT) 110H , Alkaline Phosphatase 66, Total Creatine Kinase 1761H, Troponin I 0.008, Pro-B- Type Natriuretic Peptide 140H, Total Protein 7.2, Albumin 2.5L, Globulin 4.7, Albumin/Globulin Ratio 0.5L, Triglycerides Level 74, Cholesterol Level 92, LDL Cholesterol 56, HDL Cholesterol 24L, Cholesterol/HDL Ratio 3.8, Thyroid Stimulating Hormone (TSH) 1.222 Height (Feet): 5 Height (Inches): 9.00 Weight (Pounds): 176 Te Tripathi MD Oct 30, 2018 13:54
[2018-10-30] MEDS: Docusate 100mg cap ORAL SCH ×2 (14:12→18:35)
[2018-10-30] MEDS: D5NS 1,000 ML IV SCH ×2 (14:13→21:36)
--- NOTE | 2018-10-30 14:25 | Consultation ---
History of Present Illness General Date patient seen: Oct 30, 2018 Chief Complaint: Dizziness Referring physician: EDWIGE BLACK Reason for Consultation: Rib Fx and PNA Present Illness Allergies: Coded Allergies: No Known Allergies (Unverified , 10/29/18) Medication History Scheduled Atorvastatin Calcium* (Lipitor*), 10 MG ORAL BEDTIME, (Reported) Losartan Potassium* (Losartan Potassium*), 1.5 TAB ORAL DAILY, (Reported) Tamsulosin Hcl (Tamsulosin Hcl*), 0.4 MG ORAL BEDTIME, (Reported) Discontinued Medications Atorvastatin Calcium* (Atorvastatin Calcium*), 10 MG ORAL BEDTIME, (Reported) Discontinued Reason: Prescription changed Patient History Healthcare decision maker Resuscitation status Full Code Advanced Directive on File No Physical Exam Last 24 Hour Vital Signs Date Time Temp Pulse Resp B/P (MAP) Pulse Ox O2 Delivery O2 Flow Rate FiO2 10/30/18 12:00 99.4 98 18 116/77 (90) 10/30/18 12:00 102 10/30/18 09:00 Nasal Cannula 2.0 10/30/18 08:00 100.6 111 18 118/80 (93) 97 10/30/18 08:00 111 10/30/18 06:20 100.4 10/30/18 04:00 102.4 106 20 113/77 (89) 97 10/30/18 03:15 105 10/30/18 00:00 98.0 98 20 118/80 (93) 98 10/29/18 23:19 104 10/29/18 22:59 Nasal Cannula 2.0 10/29/18 20:00 98.1 99 22 115/78 (90) 96 10/29/18 19:37 104 10/29/18 18:39 97.4 96 20 104/72 (83) 100 10/29/18 18:33 95 10/29/18 14:58 100.5 96 22 98/69 95 Room Air Intake and Output 10/29/18 10/30/18 19:00 07:00 Intake Total 300 ml Balance 300 ml Intake Oral 300 ml # Voids 1 4 Laboratory Tests Test 10/29/18 14:48 10/30/18 06:18 Lactic Acid Level 1.80 mmol/L (0.66-2.22) White Blood Count 10.9 K/UL (4.8-10.8) H Red Blood Count 4.52 M/UL (4.70-6.10) L Hemoglobin 15.3 G/DL (14.2-18.0) Hematocrit 42.4 % (42.0-52.0) Mean Corpuscular Volume 94 FL (80-99) Mean Corpuscular Hemoglobin 33.7 PG (27.0-31.0) H Mean Corpuscular Hemoglobin Concent 36.0 G/DL (32.0-36.0) Red Cell Distribution Width 11.3 % (11.6-14.8) L Platelet Count 123 K/UL (150-450) L Mean Platelet Volume 8.3 FL (6.5-10.1) Neutrophils (%) (Auto) % (45.0-75.0) Lymphocytes (%) (Auto) % (20.0-45.0) Monocytes (%) (Auto) % (1.0-10.0) Eosinophils (%) (Auto) % (0.0-3.0) Basophils (%) (Auto) % (0.0-2.0) Differential Total Cells Counted 100 Neutrophils % (Manual) 87 % (45-75) H Lymphocytes % (Manual) 5 % (20-45) L Monocytes % (Manual) 7 % (1-10) Eosinophils % (Manual) 0 % (0-3) Basophils % (Manual) 0 % (0-2) Band Neutrophils 1 % (0-8) Platelet Estimate Decreased L Platelet Morphology Normal Red Blood Cell Morphology Normal Sodium Level 129 MMOL/L (136-145) L Potassium Level 3.9 MMOL/L (3.5-5.1) Chloride Level 97 MMOL/L (98-107) L Carbon Dioxide Level 17 MMOL/L (21-32) L Anion Gap 15 mmol/L (5-15) Blood Urea Nitrogen 18 mg/dL (7-18) Creatinine 1.4 MG/DL (0.55-1.30) H Estimat Glomerular Filtration Rate 51.7 mL/min (>60) Glucose Level 89 MG/DL (74-106) Hemoglobin A1c 5.9 % (4.3-6.0) Uric Acid 4.1 MG/DL (2.6-7.2) Calcium Level 8.5 MG/DL (8.5-10.1) Phosphorus Level 1.9 MG/DL (2.5-4.9) L Magnesium Level 2.1 MG/DL (1.8-2.4) Total Bilirubin 1.1 MG/DL (0.2-1.0) H Direct Bilirubin 0.3 MG/DL (0.0-0.3) Gamma Glutamyl Transpeptidase 25 U/L (5-85) Aspartate Amino Transf (AST/SGOT) 179 U/L (15-37) H Alanine Aminotransferase (ALT/SGPT) 110 U/L (12-78) H Alkaline Phosphatase 66 U/L (46-116) Total Creatine Kinase 1761 U/L (26-308) H Troponin I 0.008 ng/mL (0.000-0.056) Pro-B-Type Natriuretic Peptide 140 pg/mL (0-125) H Total Protein 7.2 G/DL (6.4-8.2) Albumin 2.5 G/DL (3.4-5.0) L Globulin 4.7 g/dL Albumin/Globulin Ratio 0.5 (1.0-2.7) L Triglycerides Level 74 MG/DL (30-150) Cholesterol Level 92 MG/DL (< 200) LDL Cholesterol 56 mg/dL (<100) HDL Cholesterol 24 MG/DL (40-60) L Cholesterol/HDL Ratio 3.8 (3.3-4.4) Thyroid Stimulating Hormone (TSH) 1.222 uiU/mL (0.358-3.740) Microbiology Date/Time Source Procedure Growth Status 10/29/18 14:27 Nasal Nares Influenza Types A,B Antigen (MAHNAZ) - Final Complete Height (Feet): 5 Height (Inches): 9.00 Weight (Pounds): 176 Medications Current Medications Medications (Trade) Dose Ordered Sig/Rene Route PRN Reason Start Time Stop Time Status Last Admin Dose Admin Acetaminophen (Tylenol) 650 mg Q6H PRN ORAL Mild Pain/Temp > 100.5 10/30/18 07:15 11/29/18 07:14 Azithromycin (Zithromax) 250 mg DAILY ORAL 10/31/18 09:00 11/07/18 08:59 Ceftriaxone Sodium 1 gm/ Dextrose 55 ml @ 110 mls/hr DAILY IVPB 10/30/18 09:00 11/06/18 08:59 10/30/18 08:42 Dextrose (Dextrose 50%) 25 ml Q30M PRN IV Hypoglycemia 10/29/18 23:15 11/28/18 23:14 Dextrose (Dextrose 50%) 50 ml Q30M PRN IV Hypoglycemia 10/29/18 23:15 11/28/18 23:14 Dextrose/Sodium Chloride 1,000 ml @ 125 mls/hr Q8H IV 10/30/18 13:52 11/29/18 13:51 10/30/18 14:13 Docusate Sodium (Colace) 100 mg THREE TIMES A DAY ORAL 10/30/18 13:52 11/29/18 13:51 10/30/18 14:12 Guaifenesin (Robitussin) 100 mg Q4H PRN ORAL For Cough 10/30/18 00:30 11/29/18 00:29 10/30/18 08:40 Heparin Sodium (Porcine) (Heparin 5000 units/ml) 5,000 units EVERY 12 HOURS SUBQ 10/30/18 21:00 11/29/18 20:59 Morphine Sulfate (Morphine Sulfate) 2 mg Q4H PRN IVP For Pain 4-10 10/30/18 08:00 11/05/18 20:59 Pantoprazole (Protonix) 40 mg Q12HR IVP 10/30/18 21:00 11/29/18 08:59 Sodium Phosphate 30 mm/Sodium Chloride 285 ml @ 47.5 mls/hr ONCE ONCE IVPB 10/30/18 10:00 10/30/18 15:59 10/30/18 10:28 Tamsulosin HCl (Flomax) 0.4 mg BEDTIME ORAL 10/29/18 21:00 11/28/18 20:59 10/29/18 21:05 Tramadol HCl (Ultram) 50 mg ONCE ORAL 10/30/18 13:53 10/30/18 14:53 10/30/18 14:13 Tramadol HCl (Ultram) 50 mg Q8HR ORAL 10/30/18 22:00 11/06/18 21:59 Assessment/Plan Assessment/Plan Hematology Consultation REQ : Edwige Black RFC: Low platelets DOS: 10/30/18 ID 62-year-old male patient presents the ER complaining of vomiting, diarrhea, dizziness for the past 4 days. Patient reports no coffee-ground emesis or blood in vomit or stool. Reports dizziness with standing up. Reports history of dizzy symptoms. Reports fell 4 days ago and hit chest. Complaining of chest contusion. Reports pain is reproducible. Denies hitting head or loss conscious. Denies history of seizures. Denies vision changes, photophobia, phonophobia. Reports history of tinnitus. Denies shortness of breath, abdominal pain. Reports hx of dental implant 10 days that preceded the onset of current symptoms.Reports hx of high blood pressure, denies hx of CHF or stroke. Allergies: No Known Allergies (Unverified , 10/29/18) Past Medical History: see triage record Reviewed Nursing Documentation: PMH: Agreed; PSxH: Agreed Past Medical History: No History, Except For Hx Hypertension: Yes Vital Signs Date Time Temp Pulse Resp B/P (MAP) Pulse Ox O2 Delivery O2 Flow Rate FiO2 10/29/18 12:39 100.2 113 18 98/64 94 Room Air ROS: Constitutional: No fever, no chills, no night sweats, no fatigue Skin: No rashes, lumps, itchiness, dryness HEENT: No JIMENEZ, ear ache, visual changes, double vision, nosebleeds, sore throat, lumps, swollen glands Breasts: No lumps, pain, discharge Pulmonary: No cough, sputum, shortness of breath, coughing up blood, hemoptysis Cardiovascular: No chest pain, tightness, palpitations, syncope, claudication, orthopnea, PND GI: No nausea, vomiting, diarrhea, melena, hematochezia, change in appetite, abdominal pain : No dysuria, frequency, urgency, urinary incontinence, foamy urine Musculoskeletal: No joint swelling or muscle pain, trauma, back pain Neurologic: No dizziness, fainting, seizures, changes in smell or taste Psychiatric: No nervousness, stress, or depression, anxiety, hallucinations Endocrine: No weight change, heat or cold intolerance, tremor, insomnia Physical Exam General Appearance: A+O x3, NAD HEENT: normocephalic, atraumatic Neck: non-tender, normal alignment Respiratory/Chest: chest wall non-tender, lungs clear Cardiovascular/Chest: normal peripheral pulses, normal rate Abdomen: normal bowel sounds, non tender Extremities: normal range of motion Laboratory Tests Test 10/29/18 14:48 10/30/18 06:18 Lactic Acid Level 1.80 mmol/L (0.66-2.22) White Blood Count 10.9 K/UL (4.8-10.8) H Red Blood Count 4.52 M/UL (4.70-6.10) L Hemoglobin 15.3 G/DL (14.2-18.0) Hematocrit 42.4 % (42.0-52.0) Mean Corpuscular Volume 94 FL (80-99) Mean Corpuscular Hemoglobin 33.7 PG (27.0-31.0) H Mean Corpuscular Hemoglobin Concent 36.0 G/DL (32.0-36.0) Red Cell Distribution Width 11.3 % (11.6-14.8) L Platelet Count 123 K/UL (150-450) L Mean Platelet Volume 8.3 FL (6.5-10.1) Neutrophils (%) (Auto) % (45.0-75.0) Lymphocytes (%) (Auto) % (20.0-45.0) Monocytes (%) (Auto) % (1.0-10.0) Eosinophils (%) (Auto) % (0.0-3.0) Basophils (%) (Auto) % (0.0-2.0) Differential Total Cells Counted 100 Neutrophils % (Manual) 87 % (45-75) H Lymphocytes % (Manual) 5 % (20-45) L Monocytes % (Manual) 7 % (1-10) Eosinophils % (Manual) 0 % (0-3) Basophils % (Manual) 0 % (0-2) Band Neutrophils 1 % (0-8) Platelet Estimate Decreased L Platelet Morphology Normal Red Blood Cell Morphology Normal Sodium Level 129 MMOL/L (136-145) L Potassium Level 3.9 MMOL/L (3.5-5.1) Chloride Level 97 MMOL/L (98-107) L Carbon Dioxide Level 17 MMOL/L (21-32) L Anion Gap 15 mmol/L (5-15) Blood Urea Nitrogen 18 mg/dL (7-18) Creatinine 1.4 MG/DL (0.55-1.30) H Estimat Glomerular Filtration Rate 51.7 mL/min (>60) Glucose Level 89 MG/DL (74-106) Hemoglobin A1c 5.9 % (4.3-6.0) Uric Acid 4.1 MG/DL (2.6-7.2) Calcium Level 8.5 MG/DL (8.5-10.1) Phosphorus Level 1.9 MG/DL (2.5-4.9) L Magnesium Level 2.1 MG/DL (1.8-2.4) Total Bilirubin 1.1 MG/DL (0.2-1.0) H Direct Bilirubin 0.3 MG/DL (0.0-0.3) Gamma Glutamyl Transpeptidase 25 U/L (5-85) Aspartate Amino Transf (AST/SGOT) 179 U/L (15-37) H Alanine Aminotransferase (ALT/SGPT) 110 U/L (12-78) H Alkaline Phosphatase 66 U/L (46-116) Total Creatine Kinase 1761 U/L (26-308) H Troponin I 0.008 ng/mL (0.000-0.056) Pro-B-Type Natriuretic Peptide 140 pg/mL (0-125) H Total Protein 7.2 G/DL (6.4-8.2) Albumin 2.5 G/DL (3.4-5.0) L Globulin 4.7 g/dL Albumin/Globulin Ratio 0.5 (1.0-2.7) L Triglycerides Level 74 MG/DL (30-150) Cholesterol Level 92 MG/DL (< 200) LDL Cholesterol 56 mg/dL (<100) HDL Cholesterol 24 MG/DL (40-60) L Cholesterol/HDL Ratio 3.8 (3.3-4.4) Thyroid Stimulating Hormone (TSH) 1.222 uiU/mL (0.358-3.740) Assessment and Recs: # Thrombocytopenia potentially related to infection, p/w febrile tachycardia --> baseline unknown, trend platelets until improves --> us of the abd ordered with hep and hiv panel --> smear has been ordered --> meds have been reviewed --> r/o infection, abx as needed # Anemia of chronic disease --> closely monitor, currently mild # Sepsis with febrile tachycardic --> on abx # Frequent falls recently --> hydration has been started # Rhabdomylosis - elev ck --> started on ivf # Pneumonia # Rib fracture # Nausea and vomiting per gi --> zofran prn --> continue on ppi The timing of this note does not necessarily reflect the time of the patient was seen Greatly appreciate consultation! Hernán Davis MD Oct 30, 2018 14:25
--- NOTE | 2018-10-30 15:15 | Consultation ---
DATE OF CONSULTATION: 10/30/2018 INFECTIOUS DISEASE CONSULT: CONSULTING PHYSICIAN: Rahul Hutchins M.D. PRIMARY ATTENDING: Edwige Black M.D. REASON FOR CONSULT: Sepsis, UTI. HISTORY OF PRESENT ILLNESS: The patient is a 62-year-old [place] male admitted last evening complaining of vomiting, diarrhea, dizziness for 4 days. He was found to have lactic acidosis, leukocytosis, and developed fever of 102.4 this morning. Also, has tachycardia with heart rate of 113 at the time of admission. The patient also stated that he had a fall 10 days ago in the left side of chest. ALLERGIES: No known drug allergy. PAST MEDICAL HISTORY: Significant for hypertension. MEDICATIONS: Getting sodium phosphate, sodium chloride, Protonix, ceftriaxone started today, morphine, Tylenol, and got a dose of Levaquin in the ER. SOCIAL HISTORY: Denies alcohol, drug abuse, or smoking. Single. REVIEW OF SYSTEMS: Fever this morning, left-sided chest pain, coughing that is dry. Today, no nausea. No vomiting. No problem passing urine. PHYSICAL EXAMINATION: VITAL SIGNS: Temperature 100.4, T-max 102.4, pulse 106, blood pressure 113/77. GENERAL APPEARANCE: Seems to be well developed. Normal weight. HEAD AND NECK: [place] conjunctivae. HEART: Normal rate, regular. LUNGS: Clear. ABDOMEN: Soft and nontender. EXTREMITIES: No edema. NEUROLOGIC: Awake, alert, oriented x3. LABORATORY DATA: Sodium 129, potassium 3.9, chloride 97, bicarbonate 17, BUN 18, creatinine 1.4. Creatinine at the time of admission was 2.1. Lactic acid initially was 2.2, decreased to 1.8. AST, ALT are elevated. AST is 179, ALT 110. CK is also elevated 1761. Albumin is 2.5. WBC today is 10.9, down from 14.3, hemoglobin 15.3, hematocrit 42.4, and platelet is 123. UA showed rbc of 10 to 15. Influenza A and B tests were negative. Urine culture, so far no growth. Chest x-ray showed no acute process. CT scan of the chest showed minimally displaced fracture in the left fourth, fifth ribs. Nondisplaced fracture of the lateral sixth rib. There was pneumonia in chest x-ray and in chest CT scan in the right lower lobe. IMPRESSION: 1. Sepsis with fever, leukocytosis, and tachycardia. 2. Pneumonia in right lower lobe. 3. History of multiple rib fractures on left side. 4. Acute renal failure. 5. Hypertension. 6. Rhabdomyolysis. 7. Elevation of LFT. RECOMMENDATION: We will continue with ceftriaxone. We will follow up the cultures. We will repeat liver function tests in a few days. At the end of my exam, I thank Dr. Black, for involving me in the care of this patient. Rahul Hutchins M.D. DR: DEVIN JOB#: [id number] CC:
--- NOTE | 2018-10-30 15:58 | NUR ---
FERRY OPERATORFREQUENCY CHECKER SI; PNA,FEVER,SEPSIS T. 102.4 HR 111 RR 20 B/P 118/80 2L NC WBC 10.9 NA 129 CR 1.4 AST 179 ALT 110 TCK 1761 IS: IVF D5NS @ 125ML/HR CEFTRIAXONE IV NAPHOS IV ZITHROMAX PO X1 TELE STATUS
[2018-10-30 16:00] VITALS: BP 131/84
[2018-10-30] MEDS ORDERED: D5NS 1,000 ML IV SCH (18:05)
--- NOTE | 2018-10-30 18:41 | Cardiology Report ---
APPROVED REPORT EKG Measurement Heart [id number] Sinus tachycardia Otherwise normal ECG
--- NOTE | 2018-10-30 19:28 | NUR ---
HAND-OFF: Report given to LOLY Harrison.Patient is instable condition.
--- NOTE | 2018-10-30 19:30 | NUR ---
Got report from Emily SALCIDO. Pt in stable condition. Pt denies any pain or discomfort. no n/v. No s/s of distress or discomfort noted. Pt resting in bed comfortably. Bed in low and locked position, call light within reach, bedside table within reach. continue to monitor.
--- NOTE | 2018-10-30 19:58 | Cardiology Progress Note ---
Assessment/Plan Assessment/Plan The patient is seen and examined, full cardiology consult note is dictated. Objective Last 24 Hour Vital Signs Date Time Temp Pulse Resp B/P (MAP) Pulse Ox O2 Delivery O2 Flow Rate FiO2 10/30/18 16:00 101.8 112 20 131/84 (100) 100 10/30/18 16:00 112 10/30/18 12:00 99.4 98 18 116/77 (90) 10/30/18 12:00 102 10/30/18 09:00 Nasal Cannula 2.0 10/30/18 08:00 100.6 111 18 118/80 (93) 97 10/30/18 08:00 111 10/30/18 06:20 100.4 10/30/18 04:00 102.4 106 20 113/77 (89) 97 10/30/18 03:15 105 10/30/18 00:00 98.0 98 20 118/80 (93) 98 10/29/18 23:19 104 10/29/18 22:59 Nasal Cannula 2.0 10/29/18 20:00 98.1 99 22 115/78 (90) 96 Intake and Output 10/29/18 10/30/18 19:00 07:00 Intake Total 300 ml Balance 300 ml Intake Oral 300 ml # Voids 1 4 Laboratory Tests Test 10/30/18 06:18 White Blood Count 10.9 K/UL (4.8-10.8) H Red Blood Count 4.52 M/UL (4.70-6.10) L Hemoglobin 15.3 G/DL (14.2-18.0) Hematocrit 42.4 % (42.0-52.0) Mean Corpuscular Volume 94 FL (80-99) Mean Corpuscular Hemoglobin 33.7 PG (27.0-31.0) H Mean Corpuscular Hemoglobin Concent 36.0 G/DL (32.0-36.0) Red Cell Distribution Width 11.3 % (11.6-14.8) L Platelet Count 123 K/UL (150-450) L Mean Platelet Volume 8.3 FL (6.5-10.1) Neutrophils (%) (Auto) % (45.0-75.0) Lymphocytes (%) (Auto) % (20.0-45.0) Monocytes (%) (Auto) % (1.0-10.0) Eosinophils (%) (Auto) % (0.0-3.0) Basophils (%) (Auto) % (0.0-2.0) Differential Total Cells Counted 100 Neutrophils % (Manual) 87 % (45-75) H Lymphocytes % (Manual) 5 % (20-45) L Monocytes % (Manual) 7 % (1-10) Eosinophils % (Manual) 0 % (0-3) Basophils % (Manual) 0 % (0-2) Band Neutrophils 1 % (0-8) Platelet Estimate Decreased L Platelet Morphology Normal Red Blood Cell Morphology Normal Sodium Level 129 MMOL/L (136-145) L Potassium Level 3.9 MMOL/L (3.5-5.1) Chloride Level 97 MMOL/L (98-107) L Carbon Dioxide Level 17 MMOL/L (21-32) L Anion Gap 15 mmol/L (5-15) Blood Urea Nitrogen 18 mg/dL (7-18) Creatinine 1.4 MG/DL (0.55-1.30) H Estimat Glomerular Filtration Rate 51.7 mL/min (>60) Glucose Level 89 MG/DL (74-106) Hemoglobin A1c 5.9 % (4.3-6.0) Uric Acid 4.1 MG/DL (2.6-7.2) Calcium Level 8.5 MG/DL (8.5-10.1) Phosphorus Level 1.9 MG/DL (2.5-4.9) L Magnesium Level 2.1 MG/DL (1.8-2.4) Total Bilirubin 1.1 MG/DL (0.2-1.0) H Direct Bilirubin 0.3 MG/DL (0.0-0.3) Gamma Glutamyl Transpeptidase 25 U/L (5-85) Aspartate Amino Transf (AST/SGOT) 179 U/L (15-37) H Alanine Aminotransferase (ALT/SGPT) 110 U/L (12-78) H Alkaline Phosphatase 66 U/L (46-116) Total Creatine Kinase 1761 U/L (26-308) H Troponin I 0.008 ng/mL (0.000-0.056) Pro-B-Type Natriuretic Peptide 140 pg/mL (0-125) H Total Protein 7.2 G/DL (6.4-8.2) Albumin 2.5 G/DL (3.4-5.0) L Globulin 4.7 g/dL Albumin/Globulin Ratio 0.5 (1.0-2.7) L Triglycerides Level 74 MG/DL (30-150) Cholesterol Level 92 MG/DL (< 200) LDL Cholesterol 56 mg/dL (<100) HDL Cholesterol 24 MG/DL (40-60) L Cholesterol/HDL Ratio 3.8 (3.3-4.4) Thyroid Stimulating Hormone (TSH) 1.222 uiU/mL (0.358-3.740) HIV (1&2) Antibody Rapid Negative (NEGATIVE) Microbiology Date/Time Source Procedure Growth Status 10/29/18 14:27 Nasal Nares Influenza Types A,B Antigen (MAHNAZ) - Final Complete 10/29/18 13:04 Urine,Clean Catch Urine Culture - Preliminary NO GROWTH Resulted Andrae Osorio MD Oct 30, 2018 19:58
[2018-10-30 20:00] VITALS: BP 120/81
[2018-10-30] MEDS: Tamsulosin 0.4mg cap ORAL SCH (20:45)
[2018-10-30] MEDS: Heparin 5000 units/ml inj SUBQ SCH (20:46)
--- NOTE | 2018-10-30 21:45 | Consultation ---
DATE OF CONSULTATION: 10/30/2018 CARDIOLOGY CONSULTATION CONSULTING PHYSICIAN: Andrae Osorio M.D. REFERRING PHYSICIAN: Edwige Black M.D. REASON FOR CONSULTATION: Management of tachycardia. HISTORY OF PRESENT ILLNESS: The patient is a very unfortunate 62-year-old gentleman, who presented to the hospital with complaints of nausea, vomiting, diarrhea, as well as dizziness that have been going on for the past 4 days. The patient also states that he had an episode of fall about 4 days ago. As a result of that, he struck his chest wall against the ground. He complained about chest contusion. According to him, the chest wall is painful. At the time of arrival to the hospital, blood pressure was 98/64 mmHg and heart rate was 116. He was febrile with temperature of 100.2 degrees Fahrenheit. In the emergency department, a 12-lead electrocardiogram was significant for sinus tachycardia at the rate of 111, but no acute ischemic features were seen. A chest x-ray was significant for no acute cardiopulmonary disease. CT of the head was negative for acute intracranial bleed or mass effect. CT of chest revealed left fourth, fifth, and sixth rib fractures with no evidence of pneumothorax and also presence of pneumonia in the right lower lobe and right upper lobe. There was also presence of old healed left third rib fracture deformity. The patient was admitted to telemetry for further evaluation and management. Cardiology consultation was made at the request of Dr. Black for evaluation of tachycardia. PAST MEDICAL HISTORY: Hypertension. PAST SURGICAL HISTORY: None. LIST OF MEDICATIONS: Losartan 50 mg tablet 1-1/2 tablet p.o. daily, atorvastatin 10 mg p.o. at bedtime, and tamsulosin 0.4 mg p.o. at bedtime. ALLERGIES: No known drug allergies. FAMILY HISTORY: No premature coronary artery disease or arrhythmogenic in the first-degree relatives. REVIEW OF SYSTEMS: A 12-system review done essentially negative except what is mentioned in the history of present illness. PHYSICAL EXAMINATION: VITAL SIGNS: Blood pressure at the time of arrival to the hospital was 98/64, pulse of 113, respirations 18, temperature 100.2 degrees Fahrenheit, and O2 saturation of 94% on room air. GENERAL: The patient is a very unfortunate 62-year-old gentleman, in no apparent respiratory distress. Alert and oriented x4. HEENT: Atraumatic and normocephalic. Anicteric. Pupils are equal, round, and reactive to light and accommodation. Extraocular muscles intact. NECK: JVP less than 5 cm. No carotid bruit. Carotid upstrokes 2+ bilaterally. CARDIOVASCULAR: Normal S1, S2. Regular rate and rhythm. Tachycardic. No murmurs, gallops, or rubs. There is tenderness over the left chest wall. LUNGS: Clear to auscultation bilaterally. ABDOMEN: Soft, nontender, and nondistended. No hepatosplenomegaly. Positive bowel sounds. EXTREMITIES: No evidence of edema, clubbing, or cyanosis. LABORATORY FINDINGS: Sodium 120, potassium is 3.8, chloride of 85, bicarbonate 21, BUN of 34, creatinine 2.1, and glucose 120. Calcium 9.4. Troponin I 0.021. ProBNP 77. LDL 56, HDL 24, and triglycerides 74. WBC is 14.3, hemoglobin of 16.4, hematocrit of 45.3, and platelet count 131,000. ASSESSMENT AND PLAN: The patient is a very unfortunate 62-year-old gentleman seen in Cardiology consultation. 1. Sinus tachycardia. This is due to severe hypovolemia as the patient had hypochloremic hyponatremia due to frequent nausea and vomiting and loss of volume. The patient requires to be on hydration with IV fluid with normal saline. 2. Associated renal failure could be secondary to prerenal azotemia due to volume loss. 3. Sinus tachycardia does not require any AV tiffanie agents and the treatment is to support hemodynamics. 4. Hypotension, most likely secondary to hypovolemia. The treatment is IV fluid administration preferably normal saline. 5. At this time, no further cardiovascular intervention is required. I would like to thank, Dr. Black, for the courtesy of this consultation. Andrae Osorio M.D. DR: LUCA JOB#: [id number] CC:
[2018-10-30] MEDS: traMADol 50mg tab ORAL SCH (21:48)
[2018-10-31] VITALS: BP 125/86
--- NOTE | 2018-10-31 00:15 | History and Physical Report ---
DATE OF ADMISSION: 10/29/2018 HISTORY: The patient is admitted for pneumonia and fevers. The patient's . The patient has presyncopal episodes, history of hypertension, and hyperlipidemia. The patient also had a fever of 102 at the hospital. The patient also has been admitted for hyponatremia, acute renal failure, pneumonia, and elevated LFTs as well. The patient does have chills as well. Denies rectal bleeding. Denies shortness of breath. Denies palpitation. PAST MEDICAL HISTORY: The patient's past medical history is significant for history of hypertension, BPH, and hyperlipidemia. MEDICATIONS: Lipitor, losartan, and Flomax. ALLERGIES: No known allergies. FAMILY HISTORY: Noncontributory. SOCIAL HISTORY: The patient has no history of smoking. No history of alcohol or illicit drugs. REVIEW OF SYSTEMS: HEENT: Denies headaches. RESPIRATORY: Denies shortness of breath. Denies cough. Chest wall is tender to touch. CARDIOVASCULAR: Reports chest pain after the fall. GASTROINTESTINAL: Denies nausea, vomiting, or diarrhea. EXTREMITY: Reports chest pain. FUNERAL HOME GENERAL MANAGER: No change in vision or speech pattern. Complains of dizziness and recurrent falls. The patient also has some . PHYSICAL EXAMINATION: VITAL SIGNS: Temperature is 103.4, pulse is 106, and blood pressure is 113/77. HEENT: PERRLA. NECK: Supple. No lymphadenopathy. CHEST: Clear to auscultation CARDIOVASCULAR: Regular rate and rhythm. The patient is tender to touch on the chest wall. ABDOMEN: Soft, nontender, and nondistended. No organomegaly. The patient does have some ecchymoses throughout the body after the fall. FUNERAL HOME GENERAL MANAGER: Oriented x2. His reflexes are equal on both sides. Able to moves all four extremities. LABORATORY DATA: WBC of 14.3, hemoglobin of 16.4, and platelets 131,000. Sodium 129, potassium 3.9, BUN of 18, and creatinine 1.4. Troponin 0.008. AST of 139 and ALT of 110. Total bilirubin 1.1. ASSESSMENT/PLAN: Elevated LFT as well as electrolyte imbalance as well as pneumonia and sepsis. The patient's falls could be due to sepsis and pneumonia as well as hyponatremia. I have asked Dr. Hutchins, Dr. Osorio, Dr. Smith, Dr. Tripathi, and Dr. Haynes to see the patient for the above-mentioned diagnoses and treatment. Edwige Black M.D. DR: JERROD JOB#: [id number] CC:
[2018-10-31] MEDS: guaiFENesin 100mg/5ml Liq ud ORAL PRN ×2 (03:43→09:14)
[2018-10-31 04:57] VITALS: BP 115/76
[2018-10-31] MEDS: D5NS 1,000 ML IV SCH ×3 (05:53→17:07)
[2018-10-31] MEDS: traMADol 50mg tab ORAL SCH ×3 (06:02→21:10)
[2018-10-31 07:12] LABS: ANION GAP 13 mmol/L (5-15); BLOOD UREA NITROGEN 15 mg/dL (7-18); CALCIUM 8.3 MG/DL (8.5-10.1); CARBON DIOXIDE 21 MMOL/L (21-32); CHLORIDE 94 MMOL/L (98-107); CREATININE 1.3 MG/DL (0.55-1.30); PHOSPHORUS 1.8 MG/DL (2.5-4.9); POTASSIUM 3.3 MMOL/L (3.5-5.1); SODIUM 128 MMOL/L (136-145)
--- NOTE | 2018-10-31 07:15 | NUR ---
HAND-OFF: Report given to Byron SALCIDO. endorsed plan of care.
[2018-10-31 07:33] LABS: ALANINE AMINOTRANSFERASE 156 U/L (12-78); ALBUMIN 2.4 G/DL (3.4-5.0); ALKALINE PHOSPHATASE 63 U/L (46-116); ASPARTATE AMINO TRANSFERASE 230 U/L (15-37); BILIRUBIN,DIRECT 0.2 MG/DL (0.0-0.3); BILIRUBIN,TOTAL 0.9 MG/DL (0.2-1.0); CREATINE KINASE 1081 U/L (26-308)
[2018-10-31 07:47] LABS: HEMATOCRIT 40.8 % (42.0-52.0); HEMOGLOBIN 14.7 G/DL (14.2-18.0); MEAN CORPUSCULAR VOLUME 94 FL (80-99); PLATELET COUNT 148 K/UL (150-450); RED BLOOD COUNT 4.35 M/UL (4.70-6.10); RED CELL DISTRIBUTION WIDTH 11.5 % (11.6-14.8)
[2018-10-31 08:00] VITALS: BP 125/85
[2018-10-31] MEDS: Azithromycin 250mg tab ORAL SCH (08:58)
[2018-10-31] MEDS: Docusate 100mg cap ORAL SCH ×3 (08:58→17:05)
[2018-10-31] MEDS: Heparin 5000 units/ml inj SUBQ SCH ×2 (08:59→20:59)
[2018-10-31] MEDS: cefTRIAXone 1 GM in D5W 55 ML IVPB SCH (09:05)
--- NOTE | 2018-10-31 09:33 | NUR ---
ST NOTE: BEDSIDE SWALLOW EVAL RECEIVED BEDSIDE SWALLOW EVAL ORDER CHART REVIEWED PRIOR THE EVALUATION PT IS A 62-YEAR-OLD ARABIC-SPEAKING MALE WHO WAS ADMITTED DUE TO PNA, FEVER AND SEPSIS. DYSPHAGIA RISK FACTORS: PNA(PER CT CHEST: DENSE CONSOLIDATION OF MUCH OF THE R LOWER LOBE, CONSISTENT W/PNA), HTN, CARDIAC DISORDER, RIB FRACTURE DUE TO S/P FALL. PER CT HEAD: NEGATIVE FOR ACUTE INTRACRANIAL BLEED OR MASS EFFECT. 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 CURRENT STATUS: PT SEEN AT THE EDGE OF BED IN AM, FAMILY AT BEDSIDE. ALERT, COOPERATIVE. FOLLOWS DIRECTIONS. PT HAS PRODUCTIVE COUGH WITHOUT EATING/DRINKING. GIVEN PO TRIALS: CUP(SELF) WITH PILLS ONLY. PT REFUSED FURTHER PO TRIALS. INITIAL IMPRESSION: MISSING FEW MOLAR TEETH. MIN ORAL TRANSIT TIME AND OROPHARYNGEAL TRANSIT TIME GOOD LARYNGEAL ELEVATION, NO OVERT S/S OF ASPIRATION W/THIN LIQUIDS. DUE TO PT HAS R-SIDED PNA, PT MAY HAVE RISK FOR ASPIRATION. RECOMMENDATIONS: 1. CONTINUE REGULAR WITH THIN LIQUIDS DIET. 2. STRICT ASPIRATION PRECAUTIONS 3. SKILLED ST TO FOLLOW UP TO DETERMINE THE NECESSITY OF VIDEOSWALLOW STUDY D/W ITALO SALCIDO. POSTED ASPIRATION PRECAUTIONS SIGN.
[2018-10-31] MEDS ORDERED: Potassium Phosphate 30 MM in NS 275 ML IV SCH (10:00)
--- NOTE | 2018-10-31 10:49 | GI Progress Note ---
Assessment/Plan Problems: (1) Nausea & vomiting ICD Codes: R11.2 - Nausea with vomiting, unspecified SNOMED: 55331869 (2) Chest pain ICD Codes: R07.9 - Chest pain, unspecified SNOMED: 82201384 (3) Dizziness ICD Codes: R42 - Dizziness and giddiness SNOMED: 301493492, [id number] Status: unchanged Status Narrative Discussed with Dr. Smith Assessment/Plan New onset of transaminitis Chest CT reviewed, see full report. Noted with liver cyst. Symptomatic treatment at this time Okay to advance diet Zofran as needed abx PPI IV or p.o. hydration plus electrolyte correction Bowel regimen, Colace plus MiraLAX Trend LFTs Follow-up abdominal ultrasound fu labs, AFP Outpatient GI procedures The patient was seen and examined at bedside and all new and available data was reviewed in the patients chart. I agree with the above findings, impression and plan. (Patient seen earlier today. Signature stamp does not reflect patient encounter time.). - Matthew Smith MD Subjective Subjective Complaints of chest pain Denies any nausea vomiting, or dizziness Objective Last 24 Hour Vital Signs Date Time Temp Pulse Resp B/P (MAP) Pulse Ox O2 Delivery O2 Flow Rate FiO2 10/31/18 09:48 98.2 10/31/18 06:35 98.2 10/31/18 05:04 98.2 10/31/18 04:57 100.0 97 20 115/76 (89) 95 10/31/18 04:28 92 10/31/18 00:00 93 10/31/18 00:00 100.0 97 18 125/86 (99) 95 10/30/18 21:00 Nasal Cannula 2.0 10/30/18 20:00 96 10/30/18 20:00 98.4 98 20 120/81 (94) 100 10/30/18 16:00 101.8 112 20 131/84 (100) 100 10/30/18 16:00 112 10/30/18 12:00 99.4 98 18 116/77 (90) 10/30/18 12:00 102 Intake and Output 10/30/18 10/31/18 19:00 07:00 Intake Total 360 ml Output Total 200 ml Balance 160 ml Intake Oral 360 ml Output Urine Total 200 ml # Voids 3 Laboratory Tests Test 10/31/18 05:45 White Blood Count 9.0 K/UL (4.8-10.8) Red Blood Count 4.35 M/UL (4.70-6.10) L Hemoglobin 14.7 G/DL (14.2-18.0) Hematocrit 40.8 % (42.0-52.0) L Mean Corpuscular Volume 94 FL (80-99) Mean Corpuscular Hemoglobin 33.7 PG (27.0-31.0) H Mean Corpuscular Hemoglobin Concent 35.9 G/DL (32.0-36.0) Red Cell Distribution Width 11.5 % (11.6-14.8) L Platelet Count 148 K/UL (150-450) L Mean Platelet Volume 8.9 FL (6.5-10.1) Neutrophils (%) (Auto) % (45.0-75.0) Lymphocytes (%) (Auto) % (20.0-45.0) Monocytes (%) (Auto) % (1.0-10.0) Eosinophils (%) (Auto) % (0.0-3.0) Basophils (%) (Auto) % (0.0-2.0) Differential Total Cells Counted 100 Neutrophils % (Manual) 85 % (45-75) H Lymphocytes % (Manual) 11 % (20-45) L Monocytes % (Manual) 4 % (1-10) Eosinophils % (Manual) 0 % (0-3) Basophils % (Manual) 0 % (0-2) Band Neutrophils 0 % (0-8) Platelet Estimate Decreased L Platelet Morphology Normal Red Blood Cell Morphology Normal Sodium Level 128 MMOL/L (136-145) L Potassium Level 3.3 MMOL/L (3.5-5.1) L Chloride Level 94 MMOL/L (98-107) L Carbon Dioxide Level 21 MMOL/L (21-32) Anion Gap 13 mmol/L (5-15) Blood Urea Nitrogen 15 mg/dL (7-18) Creatinine 1.3 MG/DL (0.55-1.30) Estimat Glomerular Filtration Rate 56.3 mL/min (>60) Glucose Level 118 MG/DL (74-106) H Uric Acid 3.3 MG/DL (2.6-7.2) Calcium Level 8.3 MG/DL (8.5-10.1) L Phosphorus Level 1.8 MG/DL (2.5-4.9) L Magnesium Level 2.1 MG/DL (1.8-2.4) Total Bilirubin 0.9 MG/DL (0.2-1.0) Direct Bilirubin 0.2 MG/DL (0.0-0.3) Aspartate Amino Transf (AST/SGOT) 230 U/L (15-37) H Alanine Aminotransferase (ALT/SGPT) 156 U/L (12-78) H Alkaline Phosphatase 63 U/L (46-116) Total Creatine Kinase 1081 U/L (26-308) H Total Protein 6.9 G/DL (6.4-8.2) Albumin 2.4 G/DL (3.4-5.0) L Height (Feet): 5 Height (Inches): 9.00 Weight (Pounds): 176 General Appearance: WD/WN, no apparent distress, alert Cardiovascular: normal rate Respiratory/Chest: normal breath sounds, no respiratory distress Abdominal Exam: normal bowel sounds, non tender, soft Extremities: normal range of motion, non-tender Jorden Hdz NP Oct 31, 2018 10:49
[2018-10-31 12:00] VITALS: BP 140/90
--- NOTE | 2018-10-31 14:03 | General Progress Note ---
Assessment/Plan Assessment/Plan Assessment and Recs: # Thrombocytopenia potentially related to infection, p/w febrile tachycardia --> baseline unknown, trend platelets until improves --> us of the abd ordered with hep and hiv panel --> smear has been ordered --> meds have been reviewed --> r/o infection, abx as needed # Anemia of chronic disease --> closely monitor, currently mild # Sepsis with febrile tachycardic --> on abx # Frequent falls recently --> hydration has been started # Rhabdomylosis - elev ck --> started on ivf # Pneumonia # Rib fracture # Nausea and vomiting per gi --> zofran prn --> continue on ppi The timing of this note does not necessarily reflect the time of the patient was seen Greatly appreciate consultation! Subjective Constitutional: Denies: no symptoms, chills, diaphoresis, fever, malaise, weakness, other Respiratory: Denies: no symptoms, cough, orthopnea, shortness of breath, SOB with excertion, SOB at rest, sputum, stridor, wheezing, other Gastrointestinal/Abdominal: Denies: no symptoms, abdomen distended, abdominal pain, black stools, tarry stools, blood in stool, constipated, diarrhea, difficulty swallowing, nausea, poor appetite, poor fluid intake, rectal bleeding , vomiting, other Genitourinary: Denies: no symptoms, burning, discharge, frequency, flank pain, hematuria, incontinence, pain, urgency, other Neurologic/Psychiatric: Denies: no symptoms, anxiety, depressed, emotional problems, headache, numbness, paresthesia, pre-existing deficit, seizure, tingling, tremors, weakness, other Endocrine: Denies: no symptoms, excessive sweating, flushing, intolerance to cold, intolerance to heat, increased hunger, increased thirst, increased urine, unexplained weight gain, unexplained weight loss, other Hematologic/Lymphatic: Denies: no symptoms, anemia, easy bleeding, easy bruising, other Allergies: Coded Allergies: No Known Allergies (Unverified , 10/29/18) Subjective 10/31 Pt is seen by bedside, awake and comfortable, plt 148, no events Objective Last 24 Hour Vital Signs Date Time Temp Pulse Resp B/P (MAP) Pulse Ox O2 Delivery O2 Flow Rate FiO2 10/31/18 13:13 98.2 10/31/18 09:48 98.2 10/31/18 09:00 Nasal Cannula 2.0 10/31/18 08:00 97.2 109 16 125/85 (98) 95 10/31/18 05:04 98.2 10/31/18 04:57 100.0 97 20 115/76 (89) 95 10/31/18 04:28 92 10/31/18 00:00 93 10/31/18 00:00 100.0 97 18 125/86 (99) 95 10/30/18 21:00 Nasal Cannula 2.0 10/30/18 20:00 96 10/30/18 20:00 98.4 98 20 120/81 (94) 100 10/30/18 16:00 101.8 112 20 131/84 (100) 100 10/30/18 16:00 112 Intake and Output 10/30/18 10/31/18 19:00 07:00 Intake Total 360 ml Output Total 200 ml Balance 160 ml Intake Oral 360 ml Output Urine Total 200 ml # Voids 3 Laboratory Tests 10/31/18 05:45: White Blood Count 9.0, Red Blood Count 4.35L, Hemoglobin 14.7, Hematocrit 40.8L , Mean Corpuscular Volume 94, Mean Corpuscular Hemoglobin 33.7H, Mean Corpuscular Hemoglobin Concent 35.9, Red Cell Distribution Width 11.5L, Platelet Count 148L, Mean Platelet Volume 8.9, Neutrophils (%) (Auto) , Lymphocytes (%) (Auto) , Monocytes (%) (Auto) , Eosinophils (%) (Auto) , Basophils (%) (Auto) , Differential Total Cells Counted 100, Neutrophils % ( Manual) 85H, Lymphocytes % (Manual) 11L, Monocytes % (Manual) 4, Eosinophils % ( Manual) 0, Basophils % (Manual) 0, Band Neutrophils 0, Platelet Estimate DecreasedL, Platelet Morphology Normal, Red Blood Cell Morphology Normal, Sodium Level 128L, Potassium Level 3.3L, Chloride Level 94L, Carbon Dioxide Level 21, Anion Gap 13, Blood Urea Nitrogen 15, Creatinine 1.3, Estimat Glomerular Filtration Rate 56.3, Glucose Level 118H, Uric Acid 3.3, Calcium Level 8.3L, Phosphorus Level 1.8L, Magnesium Level 2.1, Total Bilirubin 0.9, Direct Bilirubin 0.2, Aspartate Amino Transf (AST/SGOT) 230H, Alanine Aminotransferase (ALT/SGPT) 156H, Alkaline Phosphatase 63, Total Creatine Kinase 1081H, Total Protein 6.9, Albumin 2.4L Height (Feet): 5 Height (Inches): 9.00 Weight (Pounds): 176 Objective Physical Exam General Appearance: A+O x3, NAD HEENT: normocephalic, atraumatic Neck: non-tender, normal alignment Respiratory/Chest: chest wall non-tender, lungs clear Cardiovascular/Chest: normal peripheral pulses, normal rate Abdomen: normal bowel sounds, non tender Extremities: normal range of motion Hernán Davis MD Oct 31, 2018 14:03
--- NOTE | 2018-10-31 14:09 | Infectious Diseases Prog Note ---
Assessment/Plan Assessment/Plan IMPRESSION: 1. Sepsis with fever, leukocytosis, and tachycardia. 2. Pneumonia in right lower lobe. 3. History of multiple rib fractures on left side. 4. Acute renal failure. 5. Hypertension. 6. Rhabdomyolysis. 7. Elevation of LFT. Plan: 1. Continue Rocephin 2. Sputum culture Subjective ROS Limited/Unobtainable: Yes Respiratory: Reports: productive cough Cardiovascular: Reports: chest pain Gastrointestinal/Abdominal: Reports: no symptoms Genitourinary: Reports: no symptoms Allergies: Coded Allergies: No Known Allergies (Unverified , 10/29/18) Objective Vital Signs Last 24 Hour Vital Signs Date Time Temp Pulse Resp B/P (MAP) Pulse Ox O2 Delivery O2 Flow Rate FiO2 10/31/18 13:13 98.2 10/31/18 09:48 98.2 10/31/18 09:00 Nasal Cannula 2.0 10/31/18 08:00 97.2 109 16 125/85 (98) 95 10/31/18 05:04 98.2 10/31/18 04:57 100.0 97 20 115/76 (89) 95 10/31/18 04:28 92 10/31/18 00:00 93 10/31/18 00:00 100.0 97 18 125/86 (99) 95 10/30/18 21:00 Nasal Cannula 2.0 10/30/18 20:00 96 10/30/18 20:00 98.4 98 20 120/81 (94) 100 10/30/18 16:00 101.8 112 20 131/84 (100) 100 10/30/18 16:00 112 Height (Feet): 5 Height (Inches): 9.00 Weight (Pounds): 176 General Appearance: no acute distress HEENT: mucous membranes moist Respiratory/Chest: lungs clear Cardiovascular: tachycardia Abdomen: soft, non tender Extremities: no edema Neurologic/Psychiatric: alert, oriented x 3, responsive Microbiology Date/Time Source Procedure Growth Status 10/29/18 14:05 Blood Blood Culture - Preliminary NO GROWTH AFTER 24 HOURS Resulted 10/29/18 13:54 Blood Blood Culture - Preliminary NO GROWTH AFTER 24 HOURS Resulted 10/29/18 14:27 Nasal Nares Influenza Types A,B Antigen (MAHNAZ) - Final Complete 10/29/18 13:04 Urine,Clean Catch Urine Culture - Preliminary NO GROWTH AFTER 24 HOURS Resulted Laboratory Tests Test 10/31/18 05:45 White Blood Count 9.0 K/UL (4.8-10.8) Red Blood Count 4.35 M/UL (4.70-6.10) L Hemoglobin 14.7 G/DL (14.2-18.0) Hematocrit 40.8 % (42.0-52.0) L Mean Corpuscular Volume 94 FL (80-99) Mean Corpuscular Hemoglobin 33.7 PG (27.0-31.0) H Mean Corpuscular Hemoglobin Concent 35.9 G/DL (32.0-36.0) Red Cell Distribution Width 11.5 % (11.6-14.8) L Platelet Count 148 K/UL (150-450) L Mean Platelet Volume 8.9 FL (6.5-10.1) Neutrophils (%) (Auto) % (45.0-75.0) Lymphocytes (%) (Auto) % (20.0-45.0) Monocytes (%) (Auto) % (1.0-10.0) Eosinophils (%) (Auto) % (0.0-3.0) Basophils (%) (Auto) % (0.0-2.0) Differential Total Cells Counted 100 Neutrophils % (Manual) 85 % (45-75) H Lymphocytes % (Manual) 11 % (20-45) L Monocytes % (Manual) 4 % (1-10) Eosinophils % (Manual) 0 % (0-3) Basophils % (Manual) 0 % (0-2) Band Neutrophils 0 % (0-8) Platelet Estimate Decreased L Platelet Morphology Normal Red Blood Cell Morphology Normal Sodium Level 128 MMOL/L (136-145) L Potassium Level 3.3 MMOL/L (3.5-5.1) L Chloride Level 94 MMOL/L (98-107) L Carbon Dioxide Level 21 MMOL/L (21-32) Anion Gap 13 mmol/L (5-15) Blood Urea Nitrogen 15 mg/dL (7-18) Creatinine 1.3 MG/DL (0.55-1.30) Estimat Glomerular Filtration Rate 56.3 mL/min (>60) Glucose Level 118 MG/DL (74-106) H Uric Acid 3.3 MG/DL (2.6-7.2) Calcium Level 8.3 MG/DL (8.5-10.1) L Phosphorus Level 1.8 MG/DL (2.5-4.9) L Magnesium Level 2.1 MG/DL (1.8-2.4) Total Bilirubin 0.9 MG/DL (0.2-1.0) Direct Bilirubin 0.2 MG/DL (0.0-0.3) Aspartate Amino Transf (AST/SGOT) 230 U/L (15-37) H Alanine Aminotransferase (ALT/SGPT) 156 U/L (12-78) H Alkaline Phosphatase 63 U/L (46-116) Total Creatine Kinase 1081 U/L (26-308) H Total Protein 6.9 G/DL (6.4-8.2) Albumin 2.4 G/DL (3.4-5.0) L Current Medications Medications (Trade) Dose Ordered Sig/Rene Route PRN Reason Start Time Stop Time Status Last Admin Dose Admin Acetaminophen (Tylenol) 650 mg Q6H PRN ORAL Mild Pain/Temp > 100.5 10/30/18 07:15 11/29/18 07:14 Azithromycin (Zithromax) 250 mg DAILY ORAL 10/31/18 09:00 11/07/18 08:59 10/31/18 08:58 Ceftriaxone Sodium 1 gm/ Dextrose 55 ml @ 110 mls/hr DAILY IVPB 10/30/18 09:00 11/06/18 08:59 10/31/18 09:05 Dextrose (Dextrose 50%) 25 ml Q30M PRN IV Hypoglycemia 10/29/18 23:15 11/28/18 23:14 Dextrose (Dextrose 50%) 50 ml Q30M PRN IV Hypoglycemia 10/29/18 23:15 11/28/18 23:14 Dextrose/Sodium Chloride 1,000 ml @ 125 mls/hr Q8H IV 10/30/18 13:52 11/29/18 13:51 10/31/18 12:42 Docusate Sodium (Colace) 100 mg THREE TIMES A DAY ORAL 10/30/18 13:52 11/29/18 13:51 10/31/18 12:44 Famotidine (Pepcid) 20 mg BID ORAL 10/31/18 09:00 11/30/18 08:59 10/31/18 09:10 Furosemide (Lasix) 10 mg EVERY 6 HOURS IV 10/31/18 12:00 11/30/18 11:59 10/31/18 12:43 Guaifenesin (Robitussin) 100 mg Q4H PRN ORAL For Cough 10/30/18 00:30 11/29/18 00:29 10/31/18 09:14 Heparin Sodium (Porcine) (Heparin 5000 units/ml) 5,000 units EVERY 12 HOURS SUBQ 10/30/18 21:00 11/29/18 20:59 10/31/18 08:59 Lidocaine (Lidoderm 5% PATCH) 1 patch DAILY TDERMAL 11/01/18 09:00 12/01/18 08:59 Morphine Sulfate (Morphine Sulfate) 2 mg Q4H PRN IVP For Pain 4-10 10/30/18 08:00 11/05/18 20:59 10/31/18 09:18 Polyethylene Glycol (Miralax) 17 gm BEDTIME ORAL 10/31/18 21:00 11/30/18 20:59 Potassium Phosphate 30 mm/ Sodium Chloride 285 ml @ 47.5 mls/hr ONCE IV 10/31/18 10:00 10/31/18 16:00 10/31/18 10:24 Potassium Chloride (K-Dur) 40 meq TWICE A DAY ORAL 10/31/18 09:00 11/30/18 08:59 10/31/18 09:11 Tamsulosin HCl (Flomax) 0.4 mg BEDTIME ORAL 10/29/18 21:00 11/28/18 20:59 10/30/18 20:45 Tramadol HCl (Ultram) 50 mg Q8HR ORAL 10/30/18 22:00 11/06/18 21:59 10/31/18 12:43 Rahul Hutchins MD Oct 31, 2018 14:09
--- NOTE | 2018-10-31 15:40 | NUR ---
*-* INSURANCE*-* ALL CLINICALS AND REVIEW FAXED TO: [facility] F:[phone]
--- NOTE | 2018-10-31 15:49 | Pulmonology Progress Note ---
Assessment/Plan Problems: (1) Rhabdomyolysis (2) UTI (urinary tract infection) (3) DMITRIY (acute kidney injury) (4) Rib fracture (5) Pneumonia (6) Nausea & vomiting (7) Dizziness Assessment/Plan Optimize pulmonary hygiene/mobilize as tolerated PRN O2 IS HHN's PRN Robitussin Continue CT & Azithro Pain control/supportive care Infiltrates need to be followed to radiographic resolution Monitor renal function and volumes, continue IVF Diet per [employer] with STRICT aspiration precuatons Anti-emetic therapy F/U GI recs DVT Px: Hep SQ FC Subjective Allergies: Coded Allergies: No Known Allergies (Unverified , 10/29/18) Subjective AFVSS on RA + cough + CP + SOB no FC Objective Last 24 Hour Vital Signs Date Time Temp Pulse Resp B/P (MAP) Pulse Ox O2 Delivery O2 Flow Rate FiO2 10/31/18 13:13 98.2 10/31/18 12:00 99 10/31/18 12:00 98.9 102 16 140/90 (107) 95 10/31/18 09:48 98.2 10/31/18 09:00 Nasal Cannula 2.0 10/31/18 08:00 105 10/31/18 08:00 97.2 109 16 125/85 (98) 95 10/31/18 05:04 98.2 10/31/18 04:57 100.0 97 20 115/76 (89) 95 10/31/18 04:28 92 10/31/18 00:00 93 10/31/18 00:00 100.0 97 18 125/86 (99) 95 10/30/18 21:00 Nasal Cannula 2.0 10/30/18 20:00 96 10/30/18 20:00 98.4 98 20 120/81 (94) 100 10/30/18 16:00 101.8 112 20 131/84 (100) 100 10/30/18 16:00 112 Intake and Output 10/30/18 10/31/18 19:00 07:00 Intake Total 360 ml Output Total 200 ml Balance 160 ml Intake Oral 360 ml Output Urine Total 200 ml # Voids 3 General Appearance: WD/WN, no acute distress HEENT: normocephalic, atraumatic, anicteric, mucous membranes moist Respiratory/Chest: chest wall non-tender, lungs clear, normal breath sounds, no respiratory distress, no accessory muscle use Cardiovascular: normal peripheral pulses, normal rate, regular rhythm Abdomen: normal bowel sounds, soft, non tender, no organomegaly, non distended , no mass Extremities: no cyanosis, no clubbing, no edema Microbiology Date/Time Source Procedure Growth Status 10/29/18 14:05 Blood Blood Culture - Preliminary NO GROWTH AFTER 24 HOURS Resulted 10/29/18 13:54 Blood Blood Culture - Preliminary NO GROWTH AFTER 24 HOURS Resulted 10/31/18 04:30 Sputum Expectorated Gram Stain - Final Resulted 10/31/18 04:30 Sputum Expectorated Sputum Culture Pending Resulted 10/29/18 14:27 Nasal Nares Influenza Types A,B Antigen (MAHNAZ) - Final Complete 10/29/18 13:04 Urine,Clean Catch Urine Culture - Preliminary NO GROWTH AFTER 24 HOURS Resulted Laboratory Tests 10/31/18 05:45: White Blood Count 9.0, Red Blood Count 4.35L, Hemoglobin 14.7, Hematocrit 40.8L , Mean Corpuscular Volume 94, Mean Corpuscular Hemoglobin 33.7H, Mean Corpuscular Hemoglobin Concent 35.9, Red Cell Distribution Width 11.5L, Platelet Count 148L, Mean Platelet Volume 8.9, Neutrophils (%) (Auto) , Lymphocytes (%) (Auto) , Monocytes (%) (Auto) , Eosinophils (%) (Auto) , Basophils (%) (Auto) , Differential Total Cells Counted 100, Neutrophils % ( Manual) 85H, Lymphocytes % (Manual) 11L, Monocytes % (Manual) 4, Eosinophils % ( Manual) 0, Basophils % (Manual) 0, Band Neutrophils 0, Platelet Estimate DecreasedL, Platelet Morphology Normal, Red Blood Cell Morphology Normal, Sodium Level 128L, Potassium Level 3.3L, Chloride Level 94L, Carbon Dioxide Level 21, Anion Gap 13, Blood Urea Nitrogen 15, Creatinine 1.3, Estimat Glomerular Filtration Rate 56.3, Glucose Level 118H, Uric Acid 3.3, Calcium Level 8.3L, Phosphorus Level 1.8L, Magnesium Level 2.1, Total Bilirubin 0.9, Direct Bilirubin 0.2, Aspartate Amino Transf (AST/SGOT) 230H, Alanine Aminotransferase (ALT/SGPT) 156H, Alkaline Phosphatase 63, Total Creatine Kinase 1081H, Total Protein 6.9, Albumin 2.4L Current Medications Medications (Trade) Dose Ordered Sig/Rene Route PRN Reason Start Time Stop Time Status Last Admin Dose Admin Acetaminophen (Tylenol) 650 mg Q6H PRN ORAL Mild Pain/Temp > 100.5 10/30/18 07:15 11/29/18 07:14 Azithromycin (Zithromax) 250 mg DAILY ORAL 10/31/18 09:00 11/07/18 08:59 10/31/18 08:58 Ceftriaxone Sodium 1 gm/ Dextrose 55 ml @ 110 mls/hr DAILY IVPB 10/30/18 09:00 11/06/18 08:59 10/31/18 09:05 Dextrose (Dextrose 50%) 25 ml Q30M PRN IV Hypoglycemia 10/29/18 23:15 11/28/18 23:14 Dextrose (Dextrose 50%) 50 ml Q30M PRN IV Hypoglycemia 10/29/18 23:15 11/28/18 23:14 Dextrose/Sodium Chloride 1,000 ml @ 125 mls/hr Q8H IV 10/30/18 13:52 11/29/18 13:51 10/31/18 12:42 Docusate Sodium (Colace) 100 mg THREE TIMES A DAY ORAL 10/30/18 13:52 11/29/18 13:51 10/31/18 12:44 Famotidine (Pepcid) 20 mg BID ORAL 10/31/18 09:00 11/30/18 08:59 10/31/18 09:10 Furosemide (Lasix) 10 mg EVERY 6 HOURS IV 10/31/18 12:00 11/30/18 11:59 10/31/18 12:43 Guaifenesin (Robitussin) 100 mg Q4H PRN ORAL For Cough 10/30/18 00:30 11/29/18 00:29 10/31/18 09:14 Heparin Sodium (Porcine) (Heparin 5000 units/ml) 5,000 units EVERY 12 HOURS SUBQ 10/30/18 21:00 11/29/18 20:59 10/31/18 08:59 Lidocaine (Lidoderm 5% PATCH) 1 patch DAILY TDERMAL 11/01/18 09:00 12/01/18 08:59 Morphine Sulfate (Morphine Sulfate) 2 mg Q4H PRN IVP For Pain 4-10 10/30/18 08:00 11/05/18 20:59 10/31/18 09:18 Polyethylene Glycol (Miralax) 17 gm BEDTIME ORAL 10/31/18 21:00 11/30/18 20:59 Potassium Phosphate 30 mm/ Sodium Chloride 285 ml @ 47.5 mls/hr ONCE IV 10/31/18 10:00 10/31/18 16:00 10/31/18 10:24 Potassium Chloride (K-Dur) 40 meq TWICE A DAY ORAL 10/31/18 09:00 11/30/18 08:59 10/31/18 09:11 Tamsulosin HCl (Flomax) 0.4 mg BEDTIME ORAL 10/29/18 21:00 11/28/18 20:59 10/30/18 20:45 Tramadol HCl (Ultram) 50 mg Q8HR ORAL 10/30/18 22:00 11/06/18 21:59 10/31/18 12:43 John Haynes MD Oct 31, 2018 15:49
[2018-10-31 16:00] VITALS: BP 144/83
--- NOTE | 2018-10-31 16:23 | Nephrology Progress Note ---
Assessment/Plan Problem List: (1) DMITRIY (acute kidney injury) (2) Rhabdomyolysis (3) Rib fracture (4) Hypertension (5) Pneumonia (6) Hyponatremia Assessment acute renal failure resolved sepsis Dehydration Pneumonia Hypotension high CK, Rhabdo Rib Fx Plan Plan: Hydrate- monitor renal parameters and CK antibiotics analgesics avoid nephrotoxics monitor serum Na Subjective ROS Limited/Unobtainable: No Constitutional: Reports: malaise, other - chest pain with deep insp Objective Objective Last 24 Hour Vital Signs Date Time Temp Pulse Resp B/P (MAP) Pulse Ox O2 Delivery O2 Flow Rate FiO2 10/31/18 13:13 98.2 10/31/18 12:00 99 10/31/18 12:00 98.9 102 16 140/90 (107) 95 10/31/18 09:48 98.2 10/31/18 09:00 Nasal Cannula 2.0 10/31/18 08:00 105 10/31/18 08:00 97.2 109 16 125/85 (98) 95 10/31/18 05:04 98.2 10/31/18 04:57 100.0 97 20 115/76 (89) 95 10/31/18 04:28 92 10/31/18 00:00 93 10/31/18 00:00 100.0 97 18 125/86 (99) 95 10/30/18 21:00 Nasal Cannula 2.0 10/30/18 20:00 96 10/30/18 20:00 98.4 98 20 120/81 (94) 100 Intake and Output 10/30/18 10/31/18 19:00 07:00 Intake Total 360 ml Output Total 200 ml Balance 160 ml Intake Oral 360 ml Output Urine Total 200 ml # Voids 3 Laboratory Tests 10/31/18 05:45: White Blood Count 9.0, Red Blood Count 4.35L, Hemoglobin 14.7, Hematocrit 40.8L , Mean Corpuscular Volume 94, Mean Corpuscular Hemoglobin 33.7H, Mean Corpuscular Hemoglobin Concent 35.9, Red Cell Distribution Width 11.5L, Platelet Count 148L, Mean Platelet Volume 8.9, Neutrophils (%) (Auto) , Lymphocytes (%) (Auto) , Monocytes (%) (Auto) , Eosinophils (%) (Auto) , Basophils (%) (Auto) , Differential Total Cells Counted 100, Neutrophils % ( Manual) 85H, Lymphocytes % (Manual) 11L, Monocytes % (Manual) 4, Eosinophils % ( Manual) 0, Basophils % (Manual) 0, Band Neutrophils 0, Platelet Estimate DecreasedL, Platelet Morphology Normal, Red Blood Cell Morphology Normal, Sodium Level 128L, Potassium Level 3.3L, Chloride Level 94L, Carbon Dioxide Level 21, Anion Gap 13, Blood Urea Nitrogen 15, Creatinine 1.3, Estimat Glomerular Filtration Rate 56.3, Glucose Level 118H, Uric Acid 3.3, Calcium Level 8.3L, Phosphorus Level 1.8L, Magnesium Level 2.1, Total Bilirubin 0.9, Direct Bilirubin 0.2, Aspartate Amino Transf (AST/SGOT) 230H, Alanine Aminotransferase (ALT/SGPT) 156H, Alkaline Phosphatase 63, Total Creatine Kinase 1081H, Total Protein 6.9, Albumin 2.4L Height (Feet): 5 Height (Inches): 9.00 Weight (Pounds): 176 Te Tripathi MD Oct 31, 2018 16:23
--- NOTE | 2018-10-31 16:32 | Diagnostic Imaging Report ---
Indication: Abnormal liver function tests and abnormal renal function tests Technique: De Santiago-scale and duplex images of the upper abdomen were obtained Comparison: none Findings: Gallbladder is unremarkable, without stones, wall thickening, nor pericholecystic fluid. Sonographic Yoo's sign is negative. Common bile duct measures 5 mm in diameter. No intrahepatic biliary ductal dilatation. Liver demonstrates slightly heterogeneous echogenicity. Multiple cysts are seen in the left hepatic lobe, largest measuring 2.6 cm long axis dimension. Portal vein and hepatic veins are patent. Pancreas is unremarkable. Spleen is unremarkable. Left kidney measures 11.2 cm in length. Right kidney measures 10.2 cm length. Both kidneys demonstrate normal echogenicity. There is no hydronephrosis. There are bilateral renal cysts. Echogenic renal sinus and parenchymal echogenic foci are seen bilaterally . Abdominal aorta is partially obscured by bowel gas, visualized portions are non-aneurysmal . Impression: Negative for gallstones or dilated bile ducts Nonspecific slightly heterogeneous hepatic echogenicity Bilateral renal calcifications, those in the right upper pole described on recent chest CT 10/29/2018. No evidence of hydronephrosis Bilateral renal, left lobe hepatic cysts Note inability to visualize portions of the abdominal aorta
--- NOTE | 2018-10-31 19:10 | NUR ---
NURSE NOTES: Received report from Evans Ramos RN. Pt is sleeping w/o distress in RA, easily arousable by voice stimuli. Safety measures are applied w/ bed alarm on, bed in lowest position w/ side rails up x2, and breaks are engaged. Call light and side table are w/in reach. Incentive spirometer is ready at bedside, teaching will be given for pt to use of it. Will follow plans of care.
--- NOTE | 2018-10-31 19:25 | NUR ---
HAND-OFF: Report given to travon SALCIDO.
[2018-10-31 20:00] VITALS: BP 129/85
[2018-10-31] MEDS: Tamsulosin 0.4mg cap ORAL SCH ×2 (20:59→21:00)
[2018-10-31] MEDS ORDERED: Miralax 17gm pkt ORAL SCH (21:00)
--- NOTE | 2018-10-31 22:22 | General Progress Note ---
Assessment/Plan Problem List: (1) Chest pain ICD Codes: R07.9 - Chest pain, unspecified SNOMED: 80940434 (2) Hypertension ICD Codes: I10 - Essential (primary) hypertension SNOMED: 96555065 (3) DMITRIY (acute kidney injury) ICD Codes: N17.9 - Acute kidney failure, unspecified SNOMED: 96310225 (4) Dizziness ICD Codes: R42 - Dizziness and giddiness SNOMED: 804724668, 186803623 (5) Sepsis ICD Codes: A41.9 - Sepsis, unspecified organism SNOMED: 79009509, 236975155 (6) Hyponatremia ICD Codes: E87.1 - Hypo-osmolality and hyponatremia SNOMED: 28151996 (7) Pneumonia ICD Codes: J18.9 - Pneumonia, unspecified organism SNOMED: 491021100 Status: progressing Assessment/Plan afebrile nac sepsis arf abx per id lyte abnormality improving clinically Subjective ROS Limited/Unobtainable: Yes Allergies: Coded Allergies: No Known Allergies (Unverified , 10/29/18) Objective Last 24 Hour Vital Signs Date Time Temp Pulse Resp B/P (MAP) Pulse Ox O2 Delivery O2 Flow Rate FiO2 10/31/18 20:00 98.0 107 18 129/85 (100) 99 10/31/18 19:49 106 10/31/18 16:00 97.5 94 16 144/83 (103) 95 10/31/18 16:00 97 10/31/18 13:13 98.2 10/31/18 12:00 99 10/31/18 12:00 98.9 102 16 140/90 (107) 95 10/31/18 09:48 98.2 10/31/18 09:00 Nasal Cannula 2.0 10/31/18 08:00 105 10/31/18 08:00 97.2 109 16 125/85 (98) 95 10/31/18 05:04 98.2 10/31/18 04:57 100.0 97 20 115/76 (89) 95 10/31/18 04:28 92 10/31/18 00:00 93 10/31/18 00:00 100.0 97 18 125/86 (99) 95 Intake and Output 10/30/18 10/31/18 19:00 07:00 Intake Total 360 ml Output Total 200 ml Balance 160 ml Intake Oral 360 ml Output Urine Total 200 ml # Voids 3 Laboratory Tests 10/31/18 05:45: White Blood Count 9.0, Red Blood Count 4.35L, Hemoglobin 14.7, Hematocrit 40.8L , Mean Corpuscular Volume 94, Mean Corpuscular Hemoglobin 33.7H, Mean Corpuscular Hemoglobin Concent 35.9, Red Cell Distribution Width 11.5L, Platelet Count 148L, Mean Platelet Volume 8.9, Neutrophils (%) (Auto) , Lymphocytes (%) (Auto) , Monocytes (%) (Auto) , Eosinophils (%) (Auto) , Basophils (%) (Auto) , Differential Total Cells Counted 100, Neutrophils % ( Manual) 85H, Lymphocytes % (Manual) 11L, Monocytes % (Manual) 4, Eosinophils % ( Manual) 0, Basophils % (Manual) 0, Band Neutrophils 0, Platelet Estimate DecreasedL, Platelet Morphology Normal, Red Blood Cell Morphology Normal, Sodium Level 128L, Potassium Level 3.3L, Chloride Level 94L, Carbon Dioxide Level 21, Anion Gap 13, Blood Urea Nitrogen 15, Creatinine 1.3, Estimat Glomerular Filtration Rate 56.3, Glucose Level 118H, Uric Acid 3.3, Calcium Level 8.3L, Phosphorus Level 1.8L, Magnesium Level 2.1, Total Bilirubin 0.9, Direct Bilirubin 0.2, Aspartate Amino Transf (AST/SGOT) 230H, Alanine Aminotransferase (ALT/SGPT) 156H, Alkaline Phosphatase 63, Total Creatine Kinase 1081H, Total Protein 6.9, Albumin 2.4L Height (Feet): 5 Height (Inches): 9.00 Weight (Pounds): 176 Neck: supple Cardiovascular: normal rate Respiratory/Chest: lungs clear Abdomen: soft Edwige Black MD Oct 31, 2018 22:22
--- NOTE | 2018-10-31 22:39 | NUR ---
NURSE NOTES: Pt removed IV because he is too tired to receive IV med continuously. Benefit and risk was informed to pt and he verbalized the understanding. Will give new IV insertion after having break since he requested to be off IV for now. Currently, pt is resting int he bed w/o distress.
--- NOTE | 2018-10-31 23:08 | Cardiology Progress Note ---
Assessment/Plan Assessment/Plan 1. Sinus tachycardia due to hypochloremic hyponatremia due to frequent nausea and vomiting and loss of volume. The patient requires to be on hydration with IV fluid with normal saline. No AV tiffanie agents is required. 2. Hypotension, most likely secondary to hypovolemia, continue IV hydration. Subjective Subjective Sinus rhythm at rate of 94. Objective Last 24 Hour Vital Signs Date Time Temp Pulse Resp B/P (MAP) Pulse Ox O2 Delivery O2 Flow Rate FiO2 10/31/18 20:00 98.0 107 18 129/85 (100) 99 10/31/18 19:49 106 10/31/18 16:00 97.5 94 16 144/83 (103) 95 10/31/18 16:00 97 10/31/18 13:13 98.2 10/31/18 12:00 99 10/31/18 12:00 98.9 102 16 140/90 (107) 95 10/31/18 09:48 98.2 10/31/18 09:00 Nasal Cannula 2.0 10/31/18 08:00 105 10/31/18 08:00 97.2 109 16 125/85 (98) 95 10/31/18 05:04 98.2 10/31/18 04:57 100.0 97 20 115/76 (89) 95 10/31/18 04:28 92 10/31/18 00:00 93 10/31/18 00:00 100.0 97 18 125/86 (99) 95 Intake and Output 10/30/18 10/31/18 19:00 07:00 Intake Total 360 ml Output Total 200 ml Balance 160 ml Intake Oral 360 ml Output Urine Total 200 ml # Voids 3 Laboratory Tests Test 10/31/18 05:45 White Blood Count 9.0 K/UL (4.8-10.8) Red Blood Count 4.35 M/UL (4.70-6.10) L Hemoglobin 14.7 G/DL (14.2-18.0) Hematocrit 40.8 % (42.0-52.0) L Mean Corpuscular Volume 94 FL (80-99) Mean Corpuscular Hemoglobin 33.7 PG (27.0-31.0) H Mean Corpuscular Hemoglobin Concent 35.9 G/DL (32.0-36.0) Red Cell Distribution Width 11.5 % (11.6-14.8) L Platelet Count 148 K/UL (150-450) L Mean Platelet Volume 8.9 FL (6.5-10.1) Neutrophils (%) (Auto) % (45.0-75.0) Lymphocytes (%) (Auto) % (20.0-45.0) Monocytes (%) (Auto) % (1.0-10.0) Eosinophils (%) (Auto) % (0.0-3.0) Basophils (%) (Auto) % (0.0-2.0) Differential Total Cells Counted 100 Neutrophils % (Manual) 85 % (45-75) H Lymphocytes % (Manual) 11 % (20-45) L Monocytes % (Manual) 4 % (1-10) Eosinophils % (Manual) 0 % (0-3) Basophils % (Manual) 0 % (0-2) Band Neutrophils 0 % (0-8) Platelet Estimate Decreased L Platelet Morphology Normal Red Blood Cell Morphology Normal Sodium Level 128 MMOL/L (136-145) L Potassium Level 3.3 MMOL/L (3.5-5.1) L Chloride Level 94 MMOL/L (98-107) L Carbon Dioxide Level 21 MMOL/L (21-32) Anion Gap 13 mmol/L (5-15) Blood Urea Nitrogen 15 mg/dL (7-18) Creatinine 1.3 MG/DL (0.55-1.30) Estimat Glomerular Filtration Rate 56.3 mL/min (>60) Glucose Level 118 MG/DL (74-106) H Uric Acid 3.3 MG/DL (2.6-7.2) Calcium Level 8.3 MG/DL (8.5-10.1) L Phosphorus Level 1.8 MG/DL (2.5-4.9) L Magnesium Level 2.1 MG/DL (1.8-2.4) Total Bilirubin 0.9 MG/DL (0.2-1.0) Direct Bilirubin 0.2 MG/DL (0.0-0.3) Aspartate Amino Transf (AST/SGOT) 230 U/L (15-37) H Alanine Aminotransferase (ALT/SGPT) 156 U/L (12-78) H Alkaline Phosphatase 63 U/L (46-116) Total Creatine Kinase 1081 U/L (26-308) H Total Protein 6.9 G/DL (6.4-8.2) Albumin 2.4 G/DL (3.4-5.0) L Microbiology Date/Time Source Procedure Growth Status 10/29/18 14:05 Blood Blood Culture - Preliminary NO GROWTH AFTER 24 HOURS Resulted 10/29/18 13:54 Blood Blood Culture - Preliminary NO GROWTH AFTER 24 HOURS Resulted 10/31/18 04:30 Sputum Expectorated Gram Stain - Final Resulted 10/31/18 04:30 Sputum Expectorated Sputum Culture Pending Resulted 10/29/18 14:27 Nasal Nares Influenza Types A,B Antigen (MAHNAZ) - Final Complete 10/29/18 13:04 Urine,Clean Catch Urine Culture - Preliminary NO GROWTH AFTER 24 HOURS Resulted Objective HEENT: Atraumatic and normocephalic. Anicteric. Pupils are equal, round, and reactive to light and accommodation. Extraocular muscles intact. NECK: JVP less than 5 cm. No carotid bruit. Carotid upstrokes 2+ bilaterally. CARDIOVASCULAR: Normal S1, S2. Regular rate and rhythm. Tachycardic. No murmurs, gallops, or rubs. There is tenderness over the left chest wall. LUNGS: Clear to auscultation bilaterally. ABDOMEN: Soft, nontender, and nondistended. No hepatosplenomegaly. Positive bowel sounds. EXTREMITIES: No evidence of edema, clubbing, or cyanosis. Andrae Osorio MD Oct 31, 2018 23:08
[2018-11-01] VITALS: BP 121/76
[2018-11-01] MEDS: guaiFENesin 100mg/5ml Liq ud ORAL PRN ×2 (01:51→11:10)
--- NOTE | 2018-11-01 03:30 | NUR ---
NURSE NOTES: T 101.8 noted at midnight. Cooling methods were applied such as cold water, no blanket, and ambulating as much as pt tolerated, instead of Tylenol d/t abnormal labs. T 97.6 noted tow hours later. New IV insertion was given. Pt was cooperated. Pt is using incentive spirometer as instructed.
[2018-11-01 04:00] VITALS: BP 130/81
[2018-11-01] MEDS: D5NS 1,000 ML IV SCH (05:34)
[2018-11-01] MEDS: traMADol 50mg tab ORAL SCH ×2 (05:35→13:18)
[2018-11-01 07:07] LABS: BASOPHILS % (AUTO) 0.4 % (0.0-2.0); EOSINOPHILS % (AUTO) 0.6 % (0.0-3.0); HEMATOCRIT 39.3 % (42.0-52.0); LYMPHOCYTES % (AUTO) 10.8 % (20.0-45.0); MEAN CORPUSCULAR VOLUME 93 FL (80-99); MONOCYTES % (AUTO) 7.2 % (1.0-10.0); NEUTROPHILS % (AUTO) 81.1 % (45.0-75.0); PLATELET COUNT 212 K/UL (150-450); RED CELL DISTRIBUTION WIDTH 11.4 % (11.6-14.8); WHITE BLOOD COUNT 7.1 K/UL (4.8-10.8)
[2018-11-01 07:12] LABS: ALANINE AMINOTRANSFERASE 239 U/L (12-78); ALBUMIN 2.7 G/DL (3.4-5.0); ALKALINE PHOSPHATASE 70 U/L (46-116); ASPARTATE AMINO TRANSFERASE 324 U/L (15-37); BILIRUBIN,DIRECT 0.4 MG/DL (0.0-0.3); BILIRUBIN,TOTAL 1.1 MG/DL (0.2-1.0)
[2018-11-01 07:18] LABS: ANION GAP 13 mmol/L (5-15); BLOOD UREA NITROGEN 13 mg/dL (7-18); CALCIUM 8.6 MG/DL (8.5-10.1); CARBON DIOXIDE 22 MMOL/L (21-32); CHLORIDE 96 MMOL/L (98-107); CREATININE 1.3 MG/DL (0.55-1.30); POTASSIUM 3.5 MMOL/L (3.5-5.1); SODIUM 131 MMOL/L (136-145)
--- NOTE | 2018-11-01 07:27 | NUR ---
HAND-OFF: Report given to Evans Ramos RN. is at bedside, and the senior compliance analyst is visiting him. Stable condition.
[2018-11-01 07:28] LABS: CREATINE KINASE 651 U/L (26-308); PHOSPHORUS 2.3 MG/DL (2.5-4.9)
[2018-11-01] MEDS: Docusate 100mg cap ORAL SCH ×2 (07:58→13:17)
[2018-11-01] MEDS: Azithromycin 250mg tab ORAL SCH (07:59)
[2018-11-01 08:00] VITALS: BP 125/89
[2018-11-01] MEDS: Heparin 5000 units/ml inj SUBQ SCH (08:00)
[2018-11-01] MEDS: cefTRIAXone 1 GM in D5W 55 ML IVPB SCH (08:11)
--- NOTE | 2018-11-01 09:27 | NUR ---
RD ASSESSMENT & RECOMMENDATIONS SEE CARE ACTIVITY FOR COMPLETE ASSESSMENT DAILY ESTIMATED NEEDS: Needs based on Sepsis, DM 80kg 25-30 kcals/kg 5737-9997 total kcals 1-2 g protein/kg 80-160 g total protein Fluid per MD, on lasix NUTRITION DIAGNOSIS: Altered nutrition related lab values r/t clinical status as evidenced by elev Creat kinase, trending down (651), low N a(131), elev LFT's, low phos (2.3), elev A1C (5.9), febrile- tmax 101.8. CURRENT DIET: Regular PO DIET RECOMMENDATIONS: CCHO MED (texture per [employer] WRAPPING EXAMINER) ADDITIONAL RECOMMENDATIONS: 1) Obtain a standing weight 2) On lasix/ monitor lytes daily, replete as needed 3) Rec accuchecks w/ SSI 4) B-complex daily
--- NOTE | 2018-11-01 10:39 | Nephrology Progress Note ---
Assessment/Plan Problem List: (1) DMITRIY (acute kidney injury) (2) Rhabdomyolysis (3) Rib fracture (4) Hypertension (5) Pneumonia (6) Hyponatremia Assessment acute renal failure resolved sepsis Dehydration Pneumonia Hypotension high CK, Rhabdo Rib Fx Plan Plan: echo lopressor hold Zithro for high LFTs Hydrate- monitor renal parameters and CK antibiotics analgesics avoid nephrotoxics monitor serum Na Subjective ROS Limited/Unobtainable: No Constitutional: Reports: malaise Objective Objective Last 24 Hour Vital Signs Date Time Temp Pulse Resp B/P (MAP) Pulse Ox O2 Delivery O2 Flow Rate FiO2 11/01/18 08:00 98.0 102 16 125/89 (101) 95 11/01/18 04:00 98.9 86 18 130/81 (97) 95 11/01/18 03:57 98 11/01/18 02:00 97.6 11/01/18 00:00 101.8 99 18 121/76 (91) 91 10/31/18 23:46 98 10/31/18 21:00 Nasal Cannula 2.0 10/31/18 20:00 98.0 107 18 129/85 (100) 99 10/31/18 19:49 106 10/31/18 16:00 97.5 94 16 144/83 (103) 95 10/31/18 16:00 97 10/31/18 13:13 98.2 10/31/18 12:00 99 10/31/18 12:00 98.9 102 16 140/90 (107) 95 Intake and Output 10/31/18 11/01/18 18:59 06:59 Intake Total 480 ml Output Total 300 ml Balance 180 ml Intake Oral 480 ml Output Urine Total 300 ml # Voids 2 2 Laboratory Tests 11/01/18 06:31: White Blood Count 7.1, Red Blood Count 4.20L, Hemoglobin 14.0L, Hematocrit 39.3L , Mean Corpuscular Volume 93, Mean Corpuscular Hemoglobin 33.4H, Mean Corpuscular Hemoglobin Concent 35.8, Red Cell Distribution Width 11.4L, Platelet Count 212, Mean Platelet Volume 8.0, Neutrophils (%) (Auto) 81.1H, Lymphocytes (%) (Auto) 10.8L, Monocytes (%) (Auto) 7.2, Eosinophils (%) (Auto) 0.6, Basophils (%) (Auto) 0.4, Sodium Level 131L, Potassium Level 3.5, Chloride Level 96L, Carbon Dioxide Level 22, Anion Gap 13, Blood Urea Nitrogen 13, Creatinine 1.3, Estimat Glomerular Filtration Rate 56.3, Glucose Level 120H, Calcium Level 8.6, Phosphorus Level 2.3L, Magnesium Level 1.9, Total Bilirubin 1.1H, Direct Bilirubin 0.4H, Aspartate Amino Transf (AST/SGOT) 324H, Alanine Aminotransferase (ALT/SGPT) 239H, Alkaline Phosphatase 70, Total Creatine Kinase 651H, Total Protein 7.3, Albumin 2.7L, Alpha Fetoprotein [Pending], Hepatitis A IgM Antibody [Pending], Hepatitis B Surface Antigen [Pending], Hepatitis B Core IgM Antibody [Pending], Hepatitis C Antibody [Pending] Height (Feet): 5 Height (Inches): 9.00 Weight (Pounds): 176 General Appearance: no apparent distress Cardiovascular: tachycardia Objective no change Te Trpiathi MD Nov 01, 2018 10:39
[2018-11-01] MEDS ORDERED: Metoprolol Tartrate 12.5mg TAB ORAL SCH ×2 (10:45→21:00)
[2018-11-01] MEDS ORDERED: Potassium Phosphate 30 MM in NS 275 ML IV ONE (11:00)
--- NOTE | 2018-11-01 11:10 | GI Progress Note ---
Assessment/Plan Problems: (1) Nausea & vomiting ICD Codes: R11.2 - Nausea with vomiting, unspecified SNOMED: 70392557 (2) Chest pain ICD Codes: R07.9 - Chest pain, unspecified SNOMED: 24352939 (3) Dizziness ICD Codes: R42 - Dizziness and giddiness SNOMED: 324466097, 831773698 Status: unchanged Status Narrative Discussed with Dr. Smith Assessment/Plan New onset of transaminitis Chest CT reviewed, see full report. Noted with liver cyst. abdominal US reviewed >> Negative for gallstones or dilated bile ducts. hepatitis panel pending Symptomatic treatment at this time Okay to advance diet Zofran as needed abx PPI IV or p.o. hydration plus electrolyte correction Bowel regimen, Colace plus MiraLAX Trend LFTs fu labs, AFP Outpatient GI procedures The patient was seen and examined at bedside and all new and available data was reviewed in the patients chart. I agree with the above findings, impression and plan. (Patient seen earlier today. Signature stamp does not reflect patient encounter time.). - Matthew Smith MD Subjective Gastrointestinal/Abdominal: Reports: poor appetite Subjective Complaints of chest pain, more severe when he coughs Denies any nausea vomiting, or dizziness Denies any diarrhea or constipation Objective Last 24 Hour Vital Signs Date Time Temp Pulse Resp B/P (MAP) Pulse Ox O2 Delivery O2 Flow Rate FiO2 11/01/18 10:59 102 125/89 11/01/18 09:00 Nasal Cannula 2.0 11/01/18 08:00 98.0 102 16 125/89 (101) 95 11/01/18 04:00 98.9 86 18 130/81 (97) 95 11/01/18 03:57 98 11/01/18 02:00 97.6 11/01/18 00:00 101.8 99 18 121/76 (91) 91 10/31/18 23:46 98 10/31/18 21:00 Nasal Cannula 2.0 10/31/18 20:00 98.0 107 18 129/85 (100) 99 10/31/18 19:49 106 10/31/18 16:00 97.5 94 16 144/83 (103) 95 10/31/18 16:00 97 10/31/18 13:13 98.2 10/31/18 12:00 99 10/31/18 12:00 98.9 102 16 140/90 (107) 95 Intake and Output 10/31/18 11/01/18 18:59 06:59 Intake Total 480 ml Output Total 300 ml Balance 180 ml Intake Oral 480 ml Output Urine Total 300 ml # Voids 2 2 Laboratory Tests Test 11/01/18 06:31 White Blood Count 7.1 K/UL (4.8-10.8) Red Blood Count 4.20 M/UL (4.70-6.10) L Hemoglobin 14.0 G/DL (14.2-18.0) L Hematocrit 39.3 % (42.0-52.0) L Mean Corpuscular Volume 93 FL (80-99) Mean Corpuscular Hemoglobin 33.4 PG (27.0-31.0) H Mean Corpuscular Hemoglobin Concent 35.8 G/DL (32.0-36.0) Red Cell Distribution Width 11.4 % (11.6-14.8) L Platelet Count 212 K/UL (150-450) Mean Platelet Volume 8.0 FL (6.5-10.1) Neutrophils (%) (Auto) 81.1 % (45.0-75.0) H Lymphocytes (%) (Auto) 10.8 % (20.0-45.0) L Monocytes (%) (Auto) 7.2 % (1.0-10.0) Eosinophils (%) (Auto) 0.6 % (0.0-3.0) Basophils (%) (Auto) 0.4 % (0.0-2.0) Sodium Level 131 MMOL/L (136-145) L Potassium Level 3.5 MMOL/L (3.5-5.1) Chloride Level 96 MMOL/L (98-107) L Carbon Dioxide Level 22 MMOL/L (21-32) Anion Gap 13 mmol/L (5-15) Blood Urea Nitrogen 13 mg/dL (7-18) Creatinine 1.3 MG/DL (0.55-1.30) Estimat Glomerular Filtration Rate 56.3 mL/min (>60) Glucose Level 120 MG/DL (74-106) H Calcium Level 8.6 MG/DL (8.5-10.1) Phosphorus Level 2.3 MG/DL (2.5-4.9) L Magnesium Level 1.9 MG/DL (1.8-2.4) Total Bilirubin 1.1 MG/DL (0.2-1.0) H Direct Bilirubin 0.4 MG/DL (0.0-0.3) H Aspartate Amino Transf (AST/SGOT) 324 U/L (15-37) H Alanine Aminotransferase (ALT/SGPT) 239 U/L (12-78) H Alkaline Phosphatase 70 U/L (46-116) Total Creatine Kinase 651 U/L (26-308) H Total Protein 7.3 G/DL (6.4-8.2) Albumin 2.7 G/DL (3.4-5.0) L Alpha Fetoprotein Pending Hepatitis A IgM Antibody Pending Hepatitis B Surface Antigen Pending Hepatitis B Core IgM Antibody Pending Hepatitis C Antibody Pending Height (Feet): 5 Height (Inches): 9.00 Weight (Pounds): 176 General Appearance: WD/WN, no apparent distress, alert Cardiovascular: normal rate Respiratory/Chest: normal breath sounds, no respiratory distress Abdominal Exam: normal bowel sounds, non tender, soft Extremities: normal range of motion, non-tender Jorden Hdz NP Nov 01, 2018 11:10
--- NOTE | 2018-11-01 11:26 | NUR ---
NURSE NOTES: Received report from Curtis SUAREZ RN. Pt w/o distress in RA, A/ O X 4. Safety measures are applied w/ bed alarm on, bed in lowest position w/ side rails up x2, break engaged. Call light and frequent used objects are w/in reach. Incentive spirometer is ready at bedside, patient reinstructed regarding proper use of spirometer.iv intact and patent Will follow plans of care.
[2018-11-01 12:00] VITALS: BP 120/88
--- NOTE | 2018-11-01 13:04 | Infectious Diseases Prog Note ---
Assessment/Plan Assessment/Plan IMPRESSION: 1. Sepsis with fever, leukocytosis, and tachycardia. 2. Pneumonia in right lower lobe. 3. History of multiple rib fractures on left side. 4. Acute renal failure, improving 5. Hypertension. 6. Rhabdomyolysis. 7. Elevation of LFT. Plan: 1. Continue Rocephin 2. repeat CXR Subjective ROS Limited/Unobtainable: No Constitutional: Reports: fever, other - last night Respiratory: Reports: productive cough Cardiovascular: Reports: chest pain, other Genitourinary: Reports: no symptoms Allergies: Coded Allergies: No Known Allergies (Unverified , 10/29/18) Objective Vital Signs Last 24 Hour Vital Signs Date Time Temp Pulse Resp B/P (MAP) Pulse Ox O2 Delivery O2 Flow Rate FiO2 11/01/18 10:59 102 125/89 11/01/18 09:00 Nasal Cannula 2.0 11/01/18 08:00 98.0 102 16 125/89 (101) 95 11/01/18 04:00 98.9 86 18 130/81 (97) 95 11/01/18 03:57 98 11/01/18 02:00 97.6 11/01/18 00:00 101.8 99 18 121/76 (91) 91 10/31/18 23:46 98 10/31/18 21:00 Nasal Cannula 2.0 10/31/18 20:00 98.0 107 18 129/85 (100) 99 10/31/18 19:49 106 10/31/18 16:00 97.5 94 16 144/83 (103) 95 10/31/18 16:00 97 10/31/18 13:13 98.2 Height (Feet): 5 Height (Inches): 9.00 Weight (Pounds): 176 General Appearance: no acute distress HEENT: mucous membranes moist Respiratory/Chest: lungs clear Cardiovascular: normal rate Abdomen: soft, non tender Extremities: no edema Neurologic/Psychiatric: alert, oriented x 3, responsive Microbiology Date/Time Source Procedure Growth Status 10/29/18 14:05 Blood Blood Culture - Preliminary NO GROWTH AFTER 48 HOURS Resulted 10/29/18 13:54 Blood Blood Culture - Preliminary NO GROWTH AFTER 48 HOURS Resulted 10/31/18 04:30 Sputum Expectorated Gram Stain - Final Resulted 10/31/18 04:30 Sputum Expectorated Sputum Culture - Preliminary NORMAL UPPER RESPIRATORY BARRY AT 24 ... Resulted 10/29/18 14:27 Nasal Nares Influenza Types A,B Antigen (MAHNAZ) - Final Complete 10/29/18 13:04 Urine,Clean Catch Urine Culture - Final NO GROWTH AFTER 48 HOURS Complete Laboratory Tests Test 11/01/18 06:31 11/01/18 11:20 White Blood Count 7.1 K/UL (4.8-10.8) Red Blood Count 4.20 M/UL (4.70-6.10) L Hemoglobin 14.0 G/DL (14.2-18.0) L Hematocrit 39.3 % (42.0-52.0) L Mean Corpuscular Volume 93 FL (80-99) Mean Corpuscular Hemoglobin 33.4 PG (27.0-31.0) H Mean Corpuscular Hemoglobin Concent 35.8 G/DL (32.0-36.0) Red Cell Distribution Width 11.4 % (11.6-14.8) L Platelet Count 212 K/UL (150-450) Mean Platelet Volume 8.0 FL (6.5-10.1) Neutrophils (%) (Auto) 81.1 % (45.0-75.0) H Lymphocytes (%) (Auto) 10.8 % (20.0-45.0) L Monocytes (%) (Auto) 7.2 % (1.0-10.0) Eosinophils (%) (Auto) 0.6 % (0.0-3.0) Basophils (%) (Auto) 0.4 % (0.0-2.0) Sodium Level 131 MMOL/L (136-145) L Potassium Level 3.5 MMOL/L (3.5-5.1) Chloride Level 96 MMOL/L (98-107) L Carbon Dioxide Level 22 MMOL/L (21-32) Anion Gap 13 mmol/L (5-15) Blood Urea Nitrogen 13 mg/dL (7-18) Creatinine 1.3 MG/DL (0.55-1.30) Estimat Glomerular Filtration Rate 56.3 mL/min (>60) Glucose Level 120 MG/DL (74-106) H Calcium Level 8.6 MG/DL (8.5-10.1) Phosphorus Level 2.3 MG/DL (2.5-4.9) L Magnesium Level 1.9 MG/DL (1.8-2.4) Total Bilirubin 1.1 MG/DL (0.2-1.0) H Direct Bilirubin 0.4 MG/DL (0.0-0.3) H Aspartate Amino Transf (AST/SGOT) 324 U/L (15-37) H Alanine Aminotransferase (ALT/SGPT) 239 U/L (12-78) H Alkaline Phosphatase 70 U/L (46-116) Total Creatine Kinase 651 U/L (26-308) H Total Protein 7.3 G/DL (6.4-8.2) Albumin 2.7 G/DL (3.4-5.0) L Alpha Fetoprotein Pending Hepatitis A IgM Antibody Pending Hepatitis B Surface Antigen Pending Hepatitis B Core IgM Antibody Pending Hepatitis C Antibody Pending Vitamin B12 Level Pending Folate Pending Current Medications Medications (Trade) Dose Ordered Sig/Rene Route PRN Reason Start Time Stop Time Status Last Admin Dose Admin Acetaminophen (Tylenol) 650 mg Q6H PRN ORAL Mild Pain/Temp > 100.5 10/30/18 07:15 11/29/18 07:14 Ceftriaxone Sodium 1 gm/ Dextrose 55 ml @ 110 mls/hr DAILY IVPB 10/30/18 09:00 11/06/18 08:59 11/01/18 08:11 Dextrose (Dextrose 50%) 25 ml Q30M PRN IV Hypoglycemia 10/29/18 23:15 11/28/18 23:14 Dextrose (Dextrose 50%) 50 ml Q30M PRN IV Hypoglycemia 10/29/18 23:15 11/28/18 23:14 Dextrose/Sodium Chloride 1,000 ml @ 75 mls/hr [id number] IV 10/31/18 16:30 11/30/18 16:29 11/01/18 05:34 Docusate Sodium (Colace) 100 mg THREE TIMES A DAY ORAL 10/30/18 13:52 11/29/18 13:51 11/01/18 07:58 Famotidine (Pepcid) 20 mg BID ORAL 10/31/18 09:00 11/30/18 08:59 11/01/18 07:59 Furosemide (Lasix) 10 mg EVERY 6 HOURS IV 10/31/18 12:00 11/30/18 11:59 11/01/18 10:58 Guaifenesin (Robitussin) 100 mg Q4H PRN ORAL For Cough 10/30/18 00:30 11/29/18 00:29 11/01/18 11:10 Heparin Sodium (Porcine) (Heparin 5000 units/ml) 5,000 units EVERY 12 HOURS SUBQ 10/30/18 21:00 11/29/18 20:59 11/01/18 08:00 Lidocaine (Lidoderm 5% PATCH) 1 patch DAILY TDERMAL 11/01/18 09:00 12/01/18 08:59 11/01/18 08:10 Metoprolol Tartrate (Lopressor) 12.5 mg Q12HR ORAL 11/01/18 21:00 12/01/18 20:59 Morphine Sulfate (Morphine Sulfate) 2 mg Q4H PRN IVP For Pain 4-10 10/30/18 08:00 11/05/18 20:59 10/31/18 09:18 Polyethylene Glycol (Miralax) 17 gm BEDTIME ORAL 10/31/18 21:00 11/30/18 20:59 10/31/18 20:59 Potassium Phosphate 30 mm/ Sodium Chloride 285 ml @ 47.5 mls/hr ONCE ONCE IV 11/01/18 11:00 11/01/18 16:59 11/01/18 10:59 Potassium Chloride (K-Dur) 40 meq TWICE A DAY ORAL 10/31/18 09:00 11/30/18 08:59 11/01/18 07:59 Tamsulosin HCl (Flomax) 0.4 mg BEDTIME ORAL 10/29/18 21:00 11/28/18 20:59 10/31/18 21:00 Tramadol HCl (Ultram) 50 mg Q8HR ORAL 10/30/18 22:00 11/06/18 21:59 11/01/18 05:35 Rahul Hutchins MD Nov 01, 2018 13:04
--- NOTE | 2018-11-01 13:41 | General Progress Note ---
Assessment/Plan Assessment/Plan Assessment and Recs: # Thrombocytopenia potentially related to infection, p/w febrile tachycardia --> baseline unknown, trend platelets until improves --> us of the abd ordered with hep and hiv panel --> smear has been ordered --> meds have been reviewed --> r/o infection, abx as needed # Anemia of chronic disease --> closely monitor, currently mild # Sepsis with febrile tachycardic --> on abx # Frequent falls recently --> hydration has been started # Rhabdomylosis - elev ck --> started on ivf # Pneumonia # Rib fracture # Nausea and vomiting per gi --> zofran prn --> continue on ppi The timing of this note does not necessarily reflect the time of the patient was seen Greatly appreciate consultation! Subjective Constitutional: Denies: no symptoms, chills, diaphoresis, fever, malaise, weakness, other Cardiovascular: Denies: no symptoms, chest pain, edema, irregular heart rate, lightheadedness, palpitations, syncope, other Respiratory: Denies: no symptoms, cough, orthopnea, shortness of breath, SOB with excertion, SOB at rest, sputum, stridor, wheezing, other Gastrointestinal/Abdominal: Denies: no symptoms, abdomen distended, abdominal pain, black stools, tarry stools, blood in stool, constipated, diarrhea, difficulty swallowing, nausea, poor appetite, poor fluid intake, rectal bleeding , vomiting, other Genitourinary: Denies: no symptoms, burning, discharge, frequency, flank pain, hematuria, incontinence, pain, urgency, other Neurologic/Psychiatric: Denies: no symptoms, anxiety, depressed, emotional problems, headache, numbness, paresthesia, pre-existing deficit, seizure, tingling, tremors, weakness, other Endocrine: Denies: no symptoms, excessive sweating, flushing, intolerance to cold, intolerance to heat, increased hunger, increased thirst, increased urine, unexplained weight gain, unexplained weight loss, other Hematologic/Lymphatic: Denies: no symptoms, anemia, easy bleeding, easy bruising, other Allergies: Coded Allergies: No Known Allergies (Unverified , 10/29/18) Subjective 10/31 Pt is seen by bedside, awake and comfortable, plt 148, no events 11/01: Pt is awake , comfortable, had fever last night, currently improved. no acute distress. Objective Last 24 Hour Vital Signs Date Time Temp Pulse Resp B/P (MAP) Pulse Ox O2 Delivery O2 Flow Rate FiO2 11/01/18 10:59 102 125/89 11/01/18 09:00 Nasal Cannula 2.0 11/01/18 08:00 98.0 102 16 125/89 (101) 95 11/01/18 04:00 98.9 86 18 130/81 (97) 95 11/01/18 03:57 98 11/01/18 02:00 97.6 11/01/18 00:00 101.8 99 18 121/76 (91) 91 10/31/18 23:46 98 10/31/18 21:00 Nasal Cannula 2.0 10/31/18 20:00 98.0 107 18 129/85 (100) 99 10/31/18 19:49 106 10/31/18 16:00 97.5 94 16 144/83 (103) 95 10/31/18 16:00 97 Intake and Output 10/31/18 11/01/18 19:00 07:00 Intake Total 480 ml Output Total 300 ml Balance 180 ml Intake Oral 480 ml Output Urine Total 300 ml # Voids 2 2 Laboratory Tests 11/01/18 06:31: White Blood Count 7.1, Red Blood Count 4.20L, Hemoglobin 14.0L, Hematocrit 39.3L , Mean Corpuscular Volume 93, Mean Corpuscular Hemoglobin 33.4H, Mean Corpuscular Hemoglobin Concent 35.8, Red Cell Distribution Width 11.4L, Platelet Count 212, Mean Platelet Volume 8.0, Neutrophils (%) (Auto) 81.1H, Lymphocytes (%) (Auto) 10.8L, Monocytes (%) (Auto) 7.2, Eosinophils (%) (Auto) 0.6, Basophils (%) (Auto) 0.4, Sodium Level 131L, Potassium Level 3.5, Chloride Level 96L, Carbon Dioxide Level 22, Anion Gap 13, Blood Urea Nitrogen 13, Creatinine 1.3, Estimat Glomerular Filtration Rate 56.3, Glucose Level 120H, Calcium Level 8.6, Phosphorus Level 2.3L, Magnesium Level 1.9, Total Bilirubin 1.1H, Direct Bilirubin 0.4H, Aspartate Amino Transf (AST/SGOT) 324H, Alanine Aminotransferase (ALT/SGPT) 239H, Alkaline Phosphatase 70, Total Creatine Kinase 651H, Total Protein 7.3, Albumin 2.7L, Alpha Fetoprotein [Pending], Hepatitis A IgM Antibody [Pending], Hepatitis B Surface Antigen [Pending], Hepatitis B Core IgM Antibody [Pending], Hepatitis C Antibody [Pending] 11/01/18 11:20: Vitamin B12 Level > 2000H, Folate 25.1 Height (Feet): 5 Height (Inches): 9.00 Weight (Pounds): 176 Objective Physical Exam General Appearance: A+O x3, NAD HEENT: normocephalic, atraumatic Neck: non-tender, normal alignment Respiratory/Chest: chest wall non-tender, lungs clear Cardiovascular/Chest: normal peripheral pulses, normal rate Abdomen: normal bowel sounds, non tender Extremities: normal range of motion Hernán Davis MD Nov 01, 2018 13:41
[2018-11-01 16:00] VITALS: BP 124/85
--- NOTE | 2018-11-01 16:14 | Cardiology Progress Note ---
Assessment/Plan Assessment/Plan 1. Sinus tachycardia, resolved, due to hypochloremic hyponatremia due to frequent nausea and vomiting and loss of volume. No AV tiffanie agents is required. 2. Hypotension, resolved, most likely secondary to hypovolemia, continue IV hydration. 3. Fib fracture. Subjective Subjective Sinus rhythm at rate of 92. Objective Last 24 Hour Vital Signs Date Time Temp Pulse Resp B/P (MAP) Pulse Ox O2 Delivery O2 Flow Rate FiO2 11/01/18 13:48 98.0 11/01/18 12:00 92 11/01/18 12:00 97.8 98 16 120/88 (99) 95 11/01/18 10:59 102 125/89 11/01/18 09:00 Nasal Cannula 2.0 11/01/18 08:10 107 11/01/18 08:00 98.0 102 16 125/89 (101) 95 11/01/18 04:00 98.9 86 18 130/81 (97) 95 11/01/18 03:57 98 11/01/18 02:00 97.6 11/01/18 00:00 101.8 99 18 121/76 (91) 91 10/31/18 23:46 98 10/31/18 21:00 Nasal Cannula 2.0 10/31/18 20:00 98.0 107 18 129/85 (100) 99 10/31/18 19:49 106 Intake and Output 10/31/18 11/01/18 19:00 07:00 Intake Total 480 ml Output Total 300 ml Balance 180 ml Intake Oral 480 ml Output Urine Total 300 ml # Voids 2 2 Laboratory Tests Test 11/01/18 06:31 11/01/18 11:20 White Blood Count 7.1 K/UL (4.8-10.8) Red Blood Count 4.20 M/UL (4.70-6.10) L Hemoglobin 14.0 G/DL (14.2-18.0) L Hematocrit 39.3 % (42.0-52.0) L Mean Corpuscular Volume 93 FL (80-99) Mean Corpuscular Hemoglobin 33.4 PG (27.0-31.0) H Mean Corpuscular Hemoglobin Concent 35.8 G/DL (32.0-36.0) Red Cell Distribution Width 11.4 % (11.6-14.8) L Platelet Count 212 K/UL (150-450) Mean Platelet Volume 8.0 FL (6.5-10.1) Neutrophils (%) (Auto) 81.1 % (45.0-75.0) H Lymphocytes (%) (Auto) 10.8 % (20.0-45.0) L Monocytes (%) (Auto) 7.2 % (1.0-10.0) Eosinophils (%) (Auto) 0.6 % (0.0-3.0) Basophils (%) (Auto) 0.4 % (0.0-2.0) Sodium Level 131 MMOL/L (136-145) L Potassium Level 3.5 MMOL/L (3.5-5.1) Chloride Level 96 MMOL/L (98-107) L Carbon Dioxide Level 22 MMOL/L (21-32) Anion Gap 13 mmol/L (5-15) Blood Urea Nitrogen 13 mg/dL (7-18) Creatinine 1.3 MG/DL (0.55-1.30) Estimat Glomerular Filtration Rate 56.3 mL/min (>60) Glucose Level 120 MG/DL (74-106) H Calcium Level 8.6 MG/DL (8.5-10.1) Phosphorus Level 2.3 MG/DL (2.5-4.9) L Magnesium Level 1.9 MG/DL (1.8-2.4) Total Bilirubin 1.1 MG/DL (0.2-1.0) H Direct Bilirubin 0.4 MG/DL (0.0-0.3) H Aspartate Amino Transf (AST/SGOT) 324 U/L (15-37) H Alanine Aminotransferase (ALT/SGPT) 239 U/L (12-78) H Alkaline Phosphatase 70 U/L (46-116) Total Creatine Kinase 651 U/L (26-308) H Total Protein 7.3 G/DL (6.4-8.2) Albumin 2.7 G/DL (3.4-5.0) L Alpha Fetoprotein Pending Hepatitis A IgM Antibody Pending Hepatitis B Surface Antigen Pending Hepatitis B Core IgM Antibody Pending Hepatitis C Antibody Pending Vitamin B12 Level > 2000 PG/ML (193-986) H Folate 25.1 NG/ML (8.6-58.9) Microbiology Date/Time Source Procedure Growth Status 10/31/18 04:30 Sputum Expectorated Gram Stain - Final Resulted 10/31/18 04:30 Sputum Expectorated Sputum Culture - Preliminary NORMAL UPPER RESPIRATORY BARRY AT 24 ... Resulted Objective HEENT: Atraumatic and normocephalic. Anicteric. Pupils are equal, round, and reactive to light and accommodation. Extraocular muscles intact. NECK: JVP less than 5 cm. No carotid bruit. Carotid upstrokes 2+ bilaterally. CARDIOVASCULAR: Normal S1, S2. Regular rate and rhythm. No murmurs, gallops, or rubs. There is tenderness over the left chest wall. LUNGS: Clear to auscultation bilaterally. ABDOMEN: Soft, nontender, and nondistended. No hepatosplenomegaly. Positive bowel sounds. EXTREMITIES: No evidence of edema, clubbing, or cyanosis. Andrae Osorio MD Nov 01, 2018 16:14
--- NOTE | 2018-11-01 16:44 | Diagnostic Imaging Report ---
Indication: Cough Technique: One view of the chest Comparison: 10/29/2018 Findings: There is increased infiltrate in the medial right mid and lower lung. The left lung is largely clear. Pleural spaces are equivocally slightly blunted, small pleural effusions possible. The heart is mildly enlarged. Impression: Increasing right lung infiltrate, over 3 days Possible small bilateral pleural effusions
--- NOTE | 2018-11-01 17:07 | Pulmonology Progress Note ---
Assessment/Plan Problems: (1) Rhabdomyolysis (2) UTI (urinary tract infection) (3) DMITRIY (acute kidney injury) (4) Rib fracture (5) Pneumonia (6) Nausea & vomiting (7) Dizziness Assessment/Plan Optimize pulmonary hygiene/mobilize as tolerated PRN O2 IS HHN's PRN Robitussin Continue Abx ---> per RN he was D/C'd off Abx?? I have put a call into the patient, will send a Rx for Levaquin to complete a 7 day course to his pharmacy He will need repeat CXR and labs in a few days, will discuss with his family - he can follow up with me or his PMD Pain control/supportive care Infiltrates need to be followed to radiographic resolution Monitor renal function and volumes Aspiration precuatons Anti-emetic therapy F/U GI recs DVT Px: HepSQ prior to D/C FC Subjective Allergies: Coded Allergies: No Known Allergies (Unverified , 10/29/18) Subjective Seen earlier has been D/C'd since Tm 101.7 VSS stable on RA Pain better less SOB no cough no FC Objective Last 24 Hour Vital Signs Date Time Temp Pulse Resp B/P (MAP) Pulse Ox O2 Delivery O2 Flow Rate FiO2 11/01/18 16:00 97.2 90 16 124/85 (98) 98 11/01/18 13:48 98.0 11/01/18 12:00 92 11/01/18 12:00 97.8 98 16 120/88 (99) 95 11/01/18 10:59 102 125/89 11/01/18 09:00 Nasal Cannula 2.0 11/01/18 08:10 107 11/01/18 08:00 98.0 102 16 125/89 (101) 95 11/01/18 04:00 98.9 86 18 130/81 (97) 95 11/01/18 03:57 98 11/01/18 02:00 97.6 11/01/18 00:00 101.8 99 18 121/76 (91) 91 10/31/18 23:46 98 10/31/18 21:00 Nasal Cannula 2.0 10/31/18 20:00 98.0 107 18 129/85 (100) 99 10/31/18 19:49 106 Intake and Output 10/31/18 11/01/18 19:00 07:00 Intake Total 480 ml Output Total 300 ml Balance 180 ml Intake Oral 480 ml Output Urine Total 300 ml # Voids 2 2 General Appearance: WD/WN, no acute distress HEENT: normocephalic, atraumatic, anicteric, mucous membranes moist Respiratory/Chest: chest wall non-tender, lungs clear, normal breath sounds, no respiratory distress, no accessory muscle use Cardiovascular: normal peripheral pulses, normal rate, regular rhythm Abdomen: normal bowel sounds, soft, non tender, no organomegaly, non distended , no mass Extremities: no cyanosis, no clubbing, no edema Microbiology Date/Time Source Procedure Growth Status 10/31/18 04:30 Sputum Expectorated Gram Stain - Final Resulted 10/31/18 04:30 Sputum Expectorated Sputum Culture - Preliminary NORMAL UPPER RESPIRATORY BARRY AT 24 ... Resulted Laboratory Tests 11/01/18 06:31: White Blood Count 7.1, Red Blood Count 4.20L, Hemoglobin 14.0L, Hematocrit 39.3L , Mean Corpuscular Volume 93, Mean Corpuscular Hemoglobin 33.4H, Mean Corpuscular Hemoglobin Concent 35.8, Red Cell Distribution Width 11.4L, Platelet Count 212, Mean Platelet Volume 8.0, Neutrophils (%) (Auto) 81.1H, Lymphocytes (%) (Auto) 10.8L, Monocytes (%) (Auto) 7.2, Eosinophils (%) (Auto) 0.6, Basophils (%) (Auto) 0.4, Sodium Level 131L, Potassium Level 3.5, Chloride Level 96L, Carbon Dioxide Level 22, Anion Gap 13, Blood Urea Nitrogen 13, Creatinine 1.3, Estimat Glomerular Filtration Rate 56.3, Glucose Level 120H, Calcium Level 8.6, Phosphorus Level 2.3L, Magnesium Level 1.9, Total Bilirubin 1.1H, Direct Bilirubin 0.4H, Aspartate Amino Transf (AST/SGOT) 324H, Alanine Aminotransferase (ALT/SGPT) 239H, Alkaline Phosphatase 70, Total Creatine Kinase 651H, Total Protein 7.3, Albumin 2.7L, Alpha Fetoprotein [Pending], Hepatitis A IgM Antibody [Pending], Hepatitis B Surface Antigen [Pending], Hepatitis B Core IgM Antibody [Pending], Hepatitis C Antibody [Pending] 11/01/18 11:20: Vitamin B12 Level > 2000H, Folate 25.1 Current Medications Medications (Trade) Dose Ordered Sig/Rene Route PRN Reason Start Time Stop Time Status Last Admin Dose Admin Acetaminophen (Tylenol) 650 mg Q6H PRN ORAL Mild Pain/Temp > 100.5 10/30/18 07:15 11/29/18 07:14 Ceftriaxone Sodium 1 gm/ Dextrose 55 ml @ 110 mls/hr DAILY IVPB 10/30/18 09:00 11/06/18 08:59 11/01/18 08:11 Dextrose (Dextrose 50%) 25 ml Q30M PRN IV Hypoglycemia 10/29/18 23:15 11/28/18 23:14 Dextrose (Dextrose 50%) 50 ml Q30M PRN IV Hypoglycemia 10/29/18 23:15 11/28/18 23:14 Dextrose/Sodium Chloride 1,000 ml @ 75 mls/hr [id number] IV 10/31/18 16:30 11/30/18 16:29 11/01/18 05:34 Docusate Sodium (Colace) 100 mg THREE TIMES A DAY ORAL 10/30/18 13:52 11/29/18 13:51 11/01/18 13:17 Famotidine (Pepcid) 20 mg BID ORAL 10/31/18 09:00 11/30/18 08:59 11/01/18 07:59 Furosemide (Lasix) 10 mg EVERY 6 HOURS IV 10/31/18 12:00 11/30/18 11:59 11/01/18 10:58 Guaifenesin (Robitussin) 100 mg Q4H PRN ORAL For Cough 10/30/18 00:30 11/29/18 00:29 11/01/18 11:10 Heparin Sodium (Porcine) (Heparin 5000 units/ml) 5,000 units EVERY 12 HOURS SUBQ 10/30/18 21:00 11/29/18 20:59 11/01/18 08:00 Lidocaine (Lidoderm 5% PATCH) 1 patch DAILY TDERMAL 11/01/18 09:00 12/01/18 08:59 11/01/18 08:10 Metoprolol Tartrate (Lopressor) 12.5 mg Q12HR ORAL 11/01/18 21:00 12/01/18 20:59 Morphine Sulfate (Morphine Sulfate) 2 mg Q4H PRN IVP For Pain 4-10 10/30/18 08:00 11/05/18 20:59 10/31/18 09:18 Polyethylene Glycol (Miralax) 17 gm BEDTIME ORAL 10/31/18 21:00 11/30/18 20:59 10/31/18 20:59 Potassium Chloride (K-Dur) 40 meq TWICE A DAY ORAL 10/31/18 09:00 11/30/18 08:59 11/01/18 07:59 Tamsulosin HCl (Flomax) 0.4 mg BEDTIME ORAL 10/29/18 21:00 11/28/18 20:59 10/31/18 21:00 Tramadol HCl (Ultram) 50 mg Q8HR ORAL 10/30/18 22:00 11/06/18 21:59 11/01/18 13:18 John Haynes MD Nov 01, 2018 17:07
--- NOTE | 2018-11-01 17:47 | NUR ---
NURSE NOTES: patient discharged with all his belonging as ordered. vital signs stable, no c/o pain and SOB at this time
--- NOTE | 2018-11-01 23:10 | Discharge Summary ---
Discharge Summary Discharge Summary _ DATE OF ADMISSION: 10/29/2018 DATE OF DISCHARGE: 11/01/2018 DISCHARGED BY: Dr. Black REASON FOR ADMISSION: 62 years old male with past medical history of hypertension, BPH, high cholesterol, presented to emergency department complaining of vomiting, diarrhea and dizziness for the past 4 days. Patient denied hematemesis, melena or hematochezia. Patient reported dizziness upon standing up. Patient reported fall 4 days ago , when he hit his chest. He complained of chest tenderness at the site where he hit it. He denied hitting head or loss of consciousness. Patient denied shortness of breath. He denied seizures. He denied vision changes or photophobia. Patient denied abdominal pain. Upon evaluation vital signs revealed 100.2 and tachycardia 113. Blood pressure was on the low side -98/64. Pulse oximetry was stable on room air. Laboratory workup revealed WBC 14.3, stable hemoglobin and hematocrit. Platelet count 121. Chemistry revealed sodium 120 , BUN 24, creatinine 2.1. Glucose 120. Lactic acid 2.2. Troponin negative. EKG revealed sinus tachycardia, no acute ischemic changes. CK 2210. AST 153, ALT 99. CT of the head revealed no evidence of acute intracranial bleeding or mass- effect. Minimal periventricular deep white matter chronic ischemic changes. Questionable old right cerebellar hemispheric deep white matter infarct. Chest x-ray revealed no acute cardiopulmonary pathology. Rib fracture noted. CT of the chest revealed minimally displaced fracture of the anterior lateral right fourth and fifth ribs. Questionable nondisplaced fracture of the lateral right sixth rib. Old healed fracture deformity of the anterolateral right third rib. Sternum appeared intact. No pneumothorax. Dense consolidation occupying most of the right lower lobe noted. Also noted consolidative opacity in the posterior right upper lobe with some dependent atelectasis seen in the left lower lobe. No pleural effusion. Urinalysis with possible evidence of UTI. Patient was subsequently admitted to telemetry floor for further management. CONSULTANTS: boots and shoes supervisor Dr. Osorio pulmonary Dr. Haynes ID specialist Dr. Segura GI specialist Dr. Smith chief cloth finishing range operator Dr. Tripathi yacht hand/oncologist Dr. Davis [facility] HOSPITAL COURSE: Patient admitted to telemetry floor and started on the IV fluids with normal saline. Supplemental oxygen provided as needed to keep pulse oximetry above 92%. Pulmonary toilet provided as needed. Incentive spirometry was encouraged. Patient provided with antitussive and on as needed basis. Patient started on empiric antibiotic as per infectious disease specialist recommendation. Pain management with addressed ,and pain was controlled. Patient slowly started on diet. Diet provided as per speech therapist recommendations, after bedside swallow evaluation was completed. Strict aspiration precautions were maintained. Antiemetic provided as needed. DVT prophylaxis provided. Melt House Centrifugal Operator closely followed. Renal parameters and electrolytes were closely monitored. Electrolytes corrected as needed. Nephrotoxins were avoided. CK was trended. Prior to discharge sodium 131. BUN 13, creatinine 1.3. CK down to 651. Machine Setter seen the patient for initial sinus tachycardia and hypotension. According to boots and shoes supervisor, sinus tachycardia was likely due to hypovolemia. Sinus tachycardia resolved with IV hydration. Hypotension was also likely secondary to hypovolemia and resolved with IV hydration. Echocardiogram revealed preserved ejection fraction, no evidence of wall motion abnormality. Patient remained in the sinus rhythm, no evidence of arrhythmia. Patient was on telemetry floor throughout his stay in the hospital. Infectious disease specialist followed. Urine culture was negative. Influenza screen test was negative. Sputum culture was negative. Blood cultures were negative. Follow-up chest x-ray still revealed right lung infiltrate. Leukocytosis resolved , patient afebrile. Infectious disease specialist recommended to continue antibiotic upon discharge to complete the course of treatment. Follow-up with chest x-ray after completion of treatment. Abdominal ultrasound was negative for gallstones or dilated ducts. Nonspecific slightly heterogeneous hepatic echogenicity. Bilateral renal calcification. No evidence of hydronephrosis. HIV test was nonreactive. Hepatitis panel still pending. LFTs were trended up. GI specialist recommended advance diet as tolerated. Antiemetics were on board as needed. Symptomatic treatment provided. Patient started on PPI. Oral fluids were encouraged . Bowel regimen instituted. GI specialist recommended outpatient GI procedure. [facility] Director followed for initial thrombocytopenia , which resolved and prior to discharge 212. Per yacht hand, initial thrombocytopenia was likely due to sepsis. Patient clinically stabilized: leukocytosis resolved, afebrile, blood pressure stabilized, pain controlled, tolerated diet , acute renal failure and acute hyponatremia resolved, no further dizziness. Patient was ready for discharge home. Outpatient follow-up with GI specialist and GI procedure recommended. FINAL DIAGNOSES: Sepsis Pneumonia Rib fracture Acute kidney injury due to hypovolemia and sepsis-resolved Acute hyponatremia-resolved Dehydration Rhabdomyolysis Dizziness Transaminitis DISCHARGE MEDICATIONS: See Medication Reconciliation list. DISCHARGE INSTRUCTIONS: Patient was discharged home . Follow up with primary care provider in one week. I have been assigned to dictate discharge summary for this account. I was not involved in the patient's management. Ayanna Zelaya NP Nov 01, 2018 23:10
--- NOTE | 2018-11-02 08:19 | NUR ---
CASE MANAGEMENT: CM review and clinical information (face sheet/ ER MD Note/ H&P) faxed to [facility] Dept @ [phone]/ [phone].
--- NOTE | 2018-11-03 11:46 | Cardiology Report ---
APPROVED REPORT EXAM: Two-dimensional and M-mode echocardiogram with Doppler and color Doppler. INDICATION Congestive Heart Failure M-Mode DIMENSIONS IVSd1.0 (0.7-1.1cm)Left Atrium (MM)4.0 (1.6-4.0cm) LVDd5.0 (3.5-5.6cm)Aortic Root4.0 (2.0-3.7cm) PWd1.1 (0.7-1.1cm)Aortic Cusp Exc.1.8 (1.5-2.0cm) LVDs3.8 (2.5-4.0cm) PWs1.3 cm Normal left ventricular chamber size, systolic function and wall motion. Left ventricular ejection fraction estimated to be 50-55 %. No evidence of left ventricular hypertrophy by 2D No evidence of pericardial effusion. Mild bi-atrial enlargement. Right ventricular chamber size is within normal limits. Mild focal aortic valve sclerosis with adequate cusp excursion. Mildly thickened mitral valve leaflets with normal excursion. Mitral annulus and aortic root calcification. Pulmonic valve not well visualized. Normal tricuspid valve structure. IVC measured at 1.7 cm with slight physiologic collapse. A color flow and spectral Doppler study was performed and revealed: No aortic regurgitation. Trace mitral regurgitation. Mitral diastolic velocities suggest reduced left ventricular relaxation c/w mild LV diastolic dysfunction (Grade I). Trace to mild tricuspid regurgitation. Tricuspid systolic velocities suggests peak right ventricular systolic pressure of 17 mmHg.
== END 2018-11-01 17:01 | disposition home or self-care (01) | DRG 720 ==
LOC: EMR 13:57 → 2E 16:00 → EDBEDREQ 17:10 → 2E 21:54
DX: A41.9 Sepsis, unspecified organism (principal); N17.9 Acute kidney failure, unspecified; J18.9 Pneumonia, unspecified organism; M62.82 Rhabdomyolysis; D69.6 Thrombocytopenia, unspecified; E87.1 Hypo-osmolality and hyponatremia; S22.41XA Multiple fractures of ribs, right side, initial encounter for closed fracture; E86.0 Dehydration; I10 Essential (primary) hypertension; E78.5 Hyperlipidemia, unspecified; N40.0 Benign prostatic hyperplasia without lower urinary tract symptoms; W19.XXXA Unspecified fall, initial encounter; N39.0 Urinary tract infection, site not specified; R79.89 Other specified abnormal findings of blood chemistry
CPT/HCPCS: 36415; 70450; 71045; 71250; 76700; 80048; 80053; 80061; 80076; 81003; 82105; 82248; 82550; 82553; 82607; 82746; 82977; 83036; 83605; 83735; 83880; 84100; 84443; 84484; 84550; 85007; 85025; 86140; 86703; 86705; 86709; 86710; 86803; 87040; 87070; 87086; 87205; 87340; 93005; 93306; 96361; 96365; 96375; 99291; J2405; J8499